=== PATIENT | female | born 1960 | race Caucasian/White ===

== ENCOUNTER 2017-02-26 19:32 | Outpatient (CLI) | payer OTHER ==
[2017-02-26 19:57] LABS: BASOPHILS # (AUTO) 0.1 10^3/uL (0.0-0.1); BASOPHILS % (AUTO) 0.5 %; EOSINOPHILS # (AUTO) 0.1 10^3/uL (0.0-0.7); EOSINOPHILS % (AUTO) 0.7 %; HCT - HEMATOCRIT 42.4 % (37.0-47.0); HGB - HEMOGLOBIN 14.5 g/dL (12.0-16.0); LYMPHOCYTES # (AUTO) 2.2 10^3/uL (1.5-3.5); LYMPHOCYTES % (AUTO) 19.1 %; MEAN CORPUSCULAR HEMOGLOBIN 31.3 pg (27.0-31.0); MEAN CORPUSCULAR HGB CONC 34.1 g/dL (32.0-36.0); MEAN CORPUSCULAR VOLUME 91.6 fL (81.0-99.0); MEAN PLATELET VOLUME 9.9 fL (7.9-10.8); MONOCYTES # (AUTO) 0.8 10^3/uL (0.0-1.0); NEUTROPHILS # (AUTO) 8.3 10^3/uL (1.5-6.6); NEUTROPHILS % (AUTO) 72.7 %; RED BLOOD COUNT 4.64 10^6/uL (4.20-5.40); RED CELL DISTRIBUTION WIDTH 13.3 % (12.0-15.0); UNCORRECTED WHITE BLOOD COUNT 11.5 x10^3/uL; WHITE BLOOD COUNT 11.5 x10^3/uL (4.8-10.8)
[2017-02-26 20:04] LABS: HEMOGLOBIN A1C 0.56 g/dL
[2017-02-26 20:08] LABS: ALBUMIN/GLOBULIN RATIO 1.3 (1.0-2.2); BILIRUBIN,TOTAL 0.9 mg/dL (0.2-1.0); BUN - BLOOD UREA NITROGEN 14 mg/dL (6-20); CALCIUM 9.3 mg/dL (8.5-10.3); CARBON DIOXIDE - CO2 25 mmol/L (21-32); CHLORIDE 105 mmol/L (101-111); CHOL/HDL RATIO 2.6 (<4.4); CHOLESTEROL 134 mg/dL; CREATININE 0.7 mg/dL (0.4-1.0); GFR - MDRD 87 (>89); GLUCOSE 118 mg/dL (70-100); HDL CHOLESTEROL 52 mg/dL; LDL/HDL RATIO 1.3 (<4.4); POTASSIUM 3.7 mmol/L (3.5-5.0); SODIUM 138 mmol/L (135-145); TOTAL PROTEIN 7.8 g/dL (6.7-8.2); TRIGLYCERIDES 64 mg/dL; VLDL CHOLESTEROL 13 mg/dL
== END 2017-02-26 19:33 | disposition home or self-care (01) ==
LOC: LAB 19:32
PROVIDERS: ATTEND Family Medicine
DX: N82.3 Fistula of vagina to large intestine (principal)
CPT/HCPCS: 36415; 80053; 80061; 83036; 84443; 85025

== ENCOUNTER 2017-03-28 21:53 | Outpatient (CLI) | payer OTHER ==
[2017-03-28 22:09] LABS: BASOPHILS # (AUTO) 0.1 10^3/uL (0.0-0.1); BASOPHILS % (AUTO) 0.6 %; EOSINOPHILS # (AUTO) 0.1 10^3/uL (0.0-0.7); EOSINOPHILS % (AUTO) 1.4 %; HGB - HEMOGLOBIN 13.1 g/dL (12.0-16.0); LYMPHOCYTES # (AUTO) 2.5 10^3/uL (1.5-3.5); LYMPHOCYTES % (AUTO) 26.2 %; MEAN CORPUSCULAR HEMOGLOBIN 30.9 pg (27.0-31.0); MEAN CORPUSCULAR HGB CONC 33.6 g/dL (32.0-36.0); MEAN PLATELET VOLUME 9.1 fL (7.9-10.8); MONOCYTES # (AUTO) 0.6 10^3/uL (0.0-1.0); MONOCYTES % (AUTO) 6.6 %; NEUTROPHILS # (AUTO) 6.3 10^3/uL (1.5-6.6); NEUTROPHILS % (AUTO) 65.2 %; RED BLOOD COUNT 4.24 10^6/uL (4.20-5.40); RED CELL DISTRIBUTION WIDTH 13.4 % (12.0-15.0); UNCORRECTED WHITE BLOOD COUNT 9.7 x10^3/uL; WHITE BLOOD COUNT 9.7 x10^3/uL (4.8-10.8)
[2017-03-28 22:19] LABS: H. PYLORI IGG ANTIBODY Negative (Negative); HPYLORI NEG QC Negative (Negative); HPYLORI POS QC POSITIVE (Positive)
== END 2017-03-28 21:54 | disposition home or self-care (01) ==
LOC: LAB 21:53
PROVIDERS: ATTEND Family Medicine
DX: D72.829 Elevated white blood cell count, unspecified (principal); K57.92 Diverticulitis of intestine, part unspecified, without perforation or abscess without bleeding; N94.6 Dysmenorrhea, unspecified
CPT/HCPCS: 36415; 83001; 83690; 85025; 87339

== ENCOUNTER 2017-04-25 17:41 | Outpatient (CLI) | payer OTHER ==
--- NOTE | 2017-04-26 10:00 | Ultrasound Report ---
PELVIC ULTRASOUND: 04/25/2017 CLINICAL INDICATION: Postmenopausal bleeding. TECHNIQUE: Transabdominal pelvic ultrasound performed for global evaluation. Transvaginal pelvic ul trasound performed for detailed evaluation. Real-time scanning performed and static images obtained. FINDINGS: The uterus is anteverted, measuring 13.1 x 8.2 x 5.7 cm. The endometrial echo complex sahra sures 17 mm. No focal myometrial lesion is appreciated. The ovaries are normal, with the right bea uring 2.6 x 2.0 x 1.5 cm, and the left measuring 2.5 x 1.7 x 1.2 cm. No free fluid is present. IMPRESSION: THICKENED ENDOMETRIUM FOR A POSTMENOPAUSAL PATIENT. CORRELATION WITH ENDOMETRIAL BIOPSY IS RECOMMENDED. JOB #: [id number] EXT JOB #:[id number]
== END 2017-04-25 17:42 | disposition home or self-care (01) ==
LOC: DI 17:41
PROVIDERS: ATTEND Obstetrics & Gynecology
DX: R93.8 Abnormal findings on diagnostic imaging of other specified body structures (principal)
CPT/HCPCS: 76830; 76856

== ENCOUNTER 2017-04-27 13:33 | Outpatient (CLI) | payer OTHER ==
[~2017-04-27 13:33] MED LIST: IOPAMIDOL-300 100 ML VIAL ONE; IOPAMIDOL-300 50 ML VIAL ONE
[2017-04-27] MEDS ORDERED: IOPAMIDOL-300 50 ML VIAL PO ONE (15:20)
[2017-04-27] MEDS ORDERED: IOPAMIDOL-300 100 ML VIAL IVP ONE (15:20)
--- NOTE | 2017-04-27 18:05 | CT Report ---
CT ABDOMEN AND PELVIS WITH CONTRAST: 04/27/2017 CLINICAL INDICATION: Diverticular disease, question colovaginal fistula. Axial CT images of the abdomen and pelvis were obtained with 100 mL Isovue-300 intravenously as well as oral contrast. In accordance with CT protocol optimization, one or more of the following dose reduction techniques w ere utilized for this exam: automated exposure control, adjustment of mA and/or KV based on patient size, or use of iterative reconstructive technique. No previous CT is available for comparison. Limited evaluation of the lung bases is unremarkable. ABDOMEN: The patient is status post cholecystectomy. The liver, spleen, pancreas, kidneys, and adre nal glands are unremarkable. No bowel dilatation, free gas, or free fluid is present. No abdominal adenopathy is seen. PELVIS: The appendix is seen in the right lower quadrant, and appears unremarkable. The uterus appe ars heterogeneous. A few sigmoid diverticula are present, without CT evidence of diverticulitis. No definite colovaginal fistula is identified, but oral contrast is not present in the distal-most sigm oid colon and rectum. No free fluid or pelvic adenopathy is appreciated. Osseous structures demonstrate degenerative changes. IMPRESSION: POSTOPERATIVE CHANGES OF CHOLECYSTECTOMY. DIVERTICULOSIS, WITHOUT CT EVIDENCE OF DIVERT ICULITIS. JOB #: [id number] EXT JOB #:[id number]
== END 2017-04-27 13:34 | disposition home or self-care (01) ==
LOC: DI 13:33
PROVIDERS: ATTEND Family Medicine
DX: K57.30 Diverticulosis of large intestine without perforation or abscess without bleeding (principal); Z90.49 Acquired absence of other specified parts of digestive tract
CPT/HCPCS: 74177; Q9967

== ENCOUNTER 2017-12-11 14:20 | Outpatient (CLI) | payer OTHER ==
--- NOTE | 2017-12-11 18:04 | HISTORY & PHYSICAL EXAMINATION ---
DATE OF SERVICE: 12/11/2017 Physician: Israel Beck MD HISTORY OF PRESENT ILLNESS: 1. Unremitting menorrhagia with anemia. 2. Failed medical therapy including OCPs and Motrin. 3. Pelvic pain, inclusive of severe dysmenorrhea. 4. Ultrasound evidence of possible adenomyosis. PLANNED PROCEDURE: Laparoscopic-assisted vaginal hysterectomy with bilateral salpingectomy; modified Mackay's procedure. HISTORY: Patient is a 56-year-old multiparous woman who has a longstanding history of menorrhagia, severe dysmenorrhea and pelvic pain. Currently, she almost bleeds continuously. Before that, she had extended menses that lasted more than 7 days with clots and documented anemia. In the distant past, she had used oral contraceptives with minimal effect. She is currently status post bilateral tubal ligation and does not want to suffer OCP side effects. She has tried numerous NSAIDs inclusive of Motrin, ibuprofen, Anaprox without relief of her dysmenorrhea. She has premenstrual dysmenorrhea that continues afterwards. This as well as the bleeding that occasionally soils through her pads makes working difficult. "I feel just ill and exhausted during my menstrual bleeding." The patient has no abnormal Pap smear history. Endometrial biopsy is negative for malignancy. PAST MEDICAL HISTORY: No chronic disease history; some history of depression and anxiety, but controlled. History of anal fissures and rectovaginal fistula. Reference Dr. Meryl Alas' report. Anoscopy discovered a rectovaginal fistula and there is at the current time it is healing over and intervention was not recommended by colorectal surgery. Last colonoscopy was in 2012, and there is no evidence of malignancy. Anoscopy was performed in [address] Alas at [facility]. PAST SURGICAL HISTORY: Cholecystectomy 2007, bilateral tubal ligation 1996. ALLERGIES: NO KNOWN DRUG ALLERGIES. MEDICATIONS: Fish oil and multivitamin. FAMILY HISTORY: Pancreatic cancer maternal relatives, asthma mother, skin cancer mother, diabetes brother at 33, daughter age 25. Depression in mother. CAD father, early at 48, hypertension mother. 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 Former smoker who smoked for 10 years and did quit smoking greater than 5 years ago. No drug, tobacco. No current tobacco use, no alcohol or drug use. REVIEW OF SYSTEMS: CONSTITUTIONAL: Fatigue, lethargy and loss of appetite with menstrual periods. HEENT: Occasional blurred vision, some hearing loss, vertigo and tinnitus. CARDIOVASCULAR: Occasional palpitations, but this has been longstanding. RESPIRATIONS: Negative. GASTROINTESTINAL: Abdominal pain, bouts of chronic constipation. GYNECOLOGIC: Reviewed in HPI. URINARY: No significant stress or urge incontinence. No UTI symptoms. MUSCULOSKELETAL: Back pain, particularly lumbar pain. DERMATOLOGIC: Negative. BREASTS: No self-breast exam findings. NEUROLOGIC: Occasionally poor balance. PSYCHOLOGIC: Referenced above. PHYSICAL EXAMINATION: GENERAL: Well groomed, pleasant, accompanied by her . VITAL SIGNS: Posted. HEENT: Supple neck. No thyromegaly normal dentition. LUNGS: Clear to auscultation. CARDIOVASCULAR: Regular. No murmur, no gallop. ABDOMEN: Soft. No organomegaly or gallbladder tenderness. No significant abdominal tenderness in her lower quadrants currently no CVA tenderness. UROGENITAL: Normal Bartholin's glands. No atrophy. Urethral meatus normal and no tenderness. Bladder no tenderness noted. VAGINA: Moist and pink. No evidence of prolapse. No abnormal discharge. Cervix, no ulcerations, lesions or cervicitis. UTERUS: Retroverted, 10-week size, tender. ADNEXA: Normal size ovaries, right and left. No tenderness noted. No mass. LYMPHATIC: No inguinal lymphadenopathy or tenderness. MUSCULOSKELETAL: Negative. SKIN: Negative. NEUROLOGIC: Negative. PSYCHOLOGIC: Completely normal demeanor and mood. ASSESSMENT: The patient has debilitating bouts heavy uterine bleeding and pain. Endometrial biopsy does not reveal malignant or premalignant changes. Pap smear normal. The patient's life is so disrupted, she desires a permanent solution. The patient has a history of levator plate spasm and anal fissures. This is stable and not a factor in her pain. PLAN: Laparoscopic-assisted vaginal hysterectomy with bilateral salpingectomy. Conservation of the ovaries unless pathology is found. Modified Mackay's culdoplasty and vaginal cuff support. Discussed various treatment options and the patient is certain that she desires hysterectomy. All risks, benefits and alternatives were reviewed. [facility] [place] reviewed in detail and all questions answered. Informed consent paperwork has been signed. TD: 12/11/2017 16:28 [facility]
[2017-12-11 19:00] LABS: BILIRUBIN,URINE NEGATIVE (NEGATIVE); GLUCOSE, URINE (UA) NEGATIVE (NEGATIVE); KETONES,URINE (UA) NEGATIVE (NEGATIVE); LEUKOCYTE ESTERASE, URINE NEGATIVE (NEGATIVE); NITRITE,URINE NEGATIVE (NEGATIVE); OCCULT BLOOD,URINE NEGATIVE (NEGATIVE); PROTEIN,URINE NEGATIVE (NEGATIVE); UROBILINOGEN,URINE 0.2 (NORMAL) E.U./dL (NORMAL)
[2017-12-11 19:02] LABS: CLARITY,URINE CLOUDY (CLEAR)
[2017-12-11 19:10] LABS: BASOPHILS % (AUTO) 0.6 %; EOSINOPHILS # (AUTO) 0.2 10^3/uL (0.0-0.7); EOSINOPHILS % (AUTO) 2.2 %; HGB - HEMOGLOBIN 13.7 g/dL (12.0-16.0); LYMPHOCYTES # (AUTO) 2.4 10^3/uL (1.5-3.5); LYMPHOCYTES % (AUTO) 30.2 %; MEAN CORPUSCULAR HEMOGLOBIN 30.6 pg (27.0-31.0); MEAN CORPUSCULAR HGB CONC 33.4 g/dL (32.0-36.0); MEAN CORPUSCULAR VOLUME 91.5 fL (81.0-99.0); MEAN PLATELET VOLUME 10.3 fL (7.9-10.8); MONOCYTES # (AUTO) 0.6 10^3/uL (0.0-1.0); NEUTROPHILS # (AUTO) 4.8 10^3/uL (1.5-6.6); PLT - PLATELET COUNT 221 10^3/uL (130-450); RED BLOOD COUNT 4.49 10^6/uL (4.20-5.40); WHITE BLOOD COUNT 8.1 x10^3/uL (4.8-10.8)
[2017-12-11 20:08] LABS: HCG,QUALITATIVE BLOOD NEGATIVE
== END 2017-12-11 14:21 | disposition home or self-care (01) ==
LOC: LAB.N 14:20
PROVIDERS: ATTEND Obstetrics & Gynecology
DX: Z01.812 Encounter for preprocedural laboratory examination (principal); N94.6 Dysmenorrhea, unspecified; N92.4 Excessive bleeding in the premenopausal period
CPT/HCPCS: 36415; 81003; 84703; 85025; 86850; 86900; 86901

== ENCOUNTER 2017-12-12 07:57 | Day surgery (SDC) | payer OTHER ==
[~2017-12-12 07:57] MED LIST changes: -IOPAMIDOL-300 100 ML VIAL ONE; -IOPAMIDOL-300 50 ML VIAL ONE; +ceFAZolin 2 GM/50 ML 2 GM/50 ML BAG IV ONE
[2017-12-12 08:05] VITALS: BP 111/61
[2017-12-12] MEDS ORDERED: LACTATED RINGERS 1,000 ML IV ONE ×2 (08:10→11:26)
[2017-12-12] MEDS ORDERED: SCOPOLAMINE PATCH TOP ONE (08:30)
[2017-12-12] MEDS ORDERED: BUPIVACAINE 0.25%-EPI 1:200000 PF 30 ML VIAL ONE (09:17)
[2017-12-12] MEDS ORDERED: BUPIVACAINE 0.25%-EPI 1:200000 PF 10 ML VIAL SUBQ ONE (09:40)
[2017-12-12] MEDS ORDERED: NEOSTIGMINE 1 MG/1 ML 10 ML MDV IVP ONE (10:15)
[2017-12-12] MEDS ORDERED: LIDOCAINE-MPF 2% 5 ML VIAL IM ONE (10:15)
[2017-12-12] MEDS ORDERED: DEXAMETHASONE 4 MG/ML VIAL IVP ONE (10:15)
[2017-12-12] MEDS ORDERED: KETOROLAC 30 MG/ML VIAL IVP ONE (10:15)
[2017-12-12] MEDS ORDERED: fentaNYL 250 MCG/5 ML VIAL IVP ONE (10:15)
[2017-12-12] MEDS ORDERED: PROPOFOL 200 MG/20 ML VIAL IVP ONE (10:15)
[2017-12-12] MEDS ORDERED: ROCURONIUM 50 MG/5 ML VIAL IVP ONE (10:15)
[2017-12-12] MEDS ORDERED: MIDAZOLAM 2 MG/2 ML VIAL IVP ONE (10:15)
[2017-12-12] MEDS ORDERED: ONDANSETRON 4 MG/2 ML VIAL IVP ONE (10:15)
[2017-12-12] MEDS ORDERED: GLYCOPYRROLATE 1 MG/5 ML VIAL IVP ONE (10:15)
--- NOTE | 2017-12-12 11:28 | OPERATIVE REPORT ---
Operative Report - General Pre-Op Diagnosis: Menorrhagia with anemia; pelvic pain; prior rectal vaginal fistula, levator Procedure Performed: Laparoscopic vaginal assisted hysterectomy; bilateral salpingectomy; modified Mackay's culdoplasty Post Op Diagnosis: Adenomyosis suspect; cystitis cystica, Await final pathology - Procedure Note Primary Surgeon: Jon Beck MD Secondary Surgeon: jon Daniel MD Anesthesia Technique: General ET tube Pathology: Uterus and tubes IV Fluids (mL): 1,200 Estimated Blood Loss (mL): 50 Urine Output (mL): 400 Drain/Tube Type: Other (Fried) Complications: None.
[2017-12-12] MEDS: HYDROmorphone 1 MG/ML CARPUJECT ONE ×2 (11:48→12:11)
[2017-12-12] MEDS ORDERED: ACETAMINOPHEN 1,000 MG/100 ML 100 ML IV ONE (11:58)
[2017-12-12] MEDS ORDERED: ONDANSETRON 4 MG/2 ML VIAL IVP PRN (12:40)
[2017-12-12] MEDS: IBUPROFEN 600 MG TABLET PO SCH ×2 (14:13→19:58)
[2017-12-12] MEDS: LACTATED RINGERS 1,000 ML IV SCH ×2 (14:15→21:23)
[2017-12-12] MEDS: oxyCOD/ACETAMIN 5 MG/325 MG TABLET PO PRN ×2 (16:01→21:23)
--- NOTE | 2017-12-12 17:40 | OPERATIVE REPORT ---
DATE OF SERVICE: 12/12/2017 Physician: Israel Beck MD PREOPERATIVE DIAGNOSIS: Menorrhagia with anemia; pelvic pain/severe dysmenorrhea; prior rectovaginal fistula; levator plate spasm. POSTOPERATIVE DIAGNOSIS: Adenomyosis suspect; cystitis cystica; await final pathology. PROCEDURE: Laparoscopic-assisted vaginal hysterectomy; bilateral salpingectomy ; modified Mackay's culdoplasty; cystoscopy. SURGEON: Israel Beck MD, FACOG SECOND SURGEON: Israel Daniel MD, FACOG ANESTHESIA: Sam Mancini, certified nurse graphite disk assembler. ANESTHESIA TYPE: General with ET tube. Marcaine 0.25% 20cc Local PATHOLOGY: Uterus and tubes sent. ESTIMATED BLOOD LOSS: 50 mL. DRAINS: Fried catheter with clear urine. COMPLICATIONS: None. FINDINGS: Exam under anesthesia finds no evident opening between the rectum and the vagina currently. The upper portions of the fornices are scarred down and twisted somewhat. Uterus is large and bulky, probably 11- to 12-week size. The uterus has a normal contour. There is 1 blotch of powder burn changes on the posterior aspect of the uterus. The ovaries looked normal. Tubes are status post tubal ligation. The rectum is adherent fairly high on the vaginal cuff, within 2 cm of the cervix. Cystoscopy reveals functional right and left ureters. There is some cystitis cystica in the trigone. There was glomerulization as well. TECHNIQUE: The awake patient was brought to the operating room and placed in the supine position on the OR table. She was uneventfully induced and intubated. She was moved to the low dorsal lithotomy position on mobile stirrups. She was prepped and draped in the customary sterile fashion. Timeout briefing was done per protocol. Exam under anesthesia was performed. A uterine manipulator was uneventfully placed as well as a keely. After injection of Marcaine, a small incision was placed under the umbilical skin fold. A 5 mm Visiport trocar was uneventfully placed into the abdominal cavity under direct visualization. Abdomen was insufflated with CO2 gas under 12 mm of pressure. Under direct visualization, 5 mm right and left operating ports were placed in the lower quadrants. The abdominal contents were assessed. See findings and photos. Beginning on the left side, the tube was tented superiorly into the midline. Using LigaSure, the mesosalpinx was desiccated and divided. Next, the utero-ovarian ligaments were desiccated and divided. Round ligaments were desiccated and divided. LigaSure was used to develop the broad ligaments and skeletonize the uterine vessels. After identifying the uterine vessels, they were doubly desiccated and divided with LigaSure. Bladder flap was developed with LigaSure and blunt dissection. This process was then repeated on the right- hand side. At this point, the procedure was converted to a vaginal phase. All CO2 gas was removed. The patient was then placed in the high dorsal lithotomy position. A weighted speculum was placed. A halo of small aliquots of Marcaine with epinephrine were injected around the cervical barrel. The cervical barrel was then circumscribed with Bovie pencil. The posterior compartment was sharply entered. The base of the uterosacral ligaments were clamped, transected and transfixed with 0 Vicryl. Next, the main body of the uterosacral ligaments were clamped, transected and transfixed with 0 Vicryl. Both of these pedicles were then tied together. We continued upward with clamping and transection maneuvers until the laparoscopic dissection was encountered. Initially, we tried to slide the uterus through the colpotomy wound, but it was too bulky. We bivalved the uterus with scissors and scalpel to allow the removal intact. The pelvic peritoneum was gathered in a pursestring with 0 Vicryl. Care was taken not to encroach on the rectum due to its high position. Next, the uterosacral ligament pedicles were tied together in the midline. Additional sutures through the uterosacral ligaments were placed and passed through the lateral corners of the vaginal cuff and tied tightly. The vaginal mucosa was closed with a running stitch of 0 chromic. At this time, we returned to the laparoscopic phase. Abdomen was insufflated with CO2 gas and all operative sites inspected and found to be hemostatically secure. At this point, the abdomen was desufflated and all trocars were removed. The skin ports were closed with subcuticular stitches of 4-0 Monocryl and dressed with Dermabond. Additional 0.25% Marcaine with epinephrine was injected for comfort. Cystoscopic Phase: To ensure integrity of the urinary collecting system, a video cystoscopy was performed. Using a 70-degree video cystoscope, the bladder was systematically inspected and found to be intact without any incursions. Both right and left ureters were functional. At this point, the Fried drain was replaced. DISPOSITION The patient was uneventfully aroused from general anesthesia and sent to the recovery in good condition. We will watch her during her recovery period and evaluate her for possible discharge later in the day. Unfortunately, the patient developed severe nausea with nonbilious nonbloody emesis and could not be discharged immediately. She was transferred to the floor for extended observation stay status. She is not anticipated to spend more than 24 hours in the hospital. DISCHARGE MEDICATIONS 1. Motrin 600 q.6h. 2. Percocet 5/325 q.4h. breakthrough pain. 3. Colace 250 b.i.d. Followup exam in the office will be in 2 weeks. The patient was given complete wound care and call back instructions. TD: 12/12/2017 12:02 LYNNETTE
[2017-12-12] MEDS: HYDROmorphone 0.5 MG/0.5 ML SYRINGE IVP PRN (19:05)
[2017-12-13] MEDS: HYDROmorphone 0.5 MG/0.5 ML SYRINGE IVP PRN ×2 (00:02→04:53)
[2017-12-13] MEDS: IBUPROFEN 600 MG TABLET PO SCH ×2 (01:17→06:49)
[2017-12-13] MEDS: oxyCOD/ACETAMIN 5 MG/325 MG TABLET PO PRN ×2 (01:18→06:49)
[2017-12-13] MEDS: LACTATED RINGERS 1,000 ML IV SCH (05:47)
== END 2017-12-13 11:00 | disposition home or self-care (01) ==
LOC: SDS 07:57 → MS2 12:11 → SDS 12-13 11:00
PROVIDERS: ATTEND Obstetrics & Gynecology
PROC: 0UT7FZZ Resection of Bilateral Fallopian Tubes, Via Natural or Artificial Opening With Percutaneous Endoscopic Assistance (ICD-10-PCS; 2017-12-12)
PROC: 0US Female Reproductive System, Reposition (ICD-10-PCS; 2017-12-12)
PROC: 0UT9FZZ Resection of Uterus, Via Natural or Artificial Opening With Percutaneous Endoscopic Assistance (ICD-10-PCS; principal; 2017-12-12 08:45)
DX: D25.1 Intramural leiomyoma of uterus (principal); N80.0 Endometriosis of uterus; N30.80 Other cystitis without hematuria; N88.8 Other specified noninflammatory disorders of cervix uteri; Z87.891 Personal history of nicotine dependence
CPT/HCPCS: 57268; 58554; A9270; J0131; J0690; J1170; J3010; J3490; J7120; 88307

== ENCOUNTER 2018-02-14 15:15 | Outpatient (CLI) | payer OTHER | END 2018-02-14 15:16 | disposition home or self-care (01) | LOC: LAB.R 15:15 | PROVIDERS: ATTEND Obstetrics & Gynecology | DX: N89.8 Other specified noninflammatory disorders of vagina (principal) | CPT/HCPCS: 87070; 87491; 87591 ==

== ENCOUNTER 2018-04-03 14:11 | Day surgery (SDC) | payer OTHER ==
[2018-04-03] MEDS ORDERED: SODIUM CHLORIDE 0.9% 1,000 ML IV ONE (15:06)
--- NOTE | 2018-04-03 15:09 | ED Physician Documentation ---
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 No: Fever, Vomiting, Hematemesis, Diarrhea, Melena, Hematochezia, Dysuria, Hematuria, Chest pain Similar symptoms before: Has not had sx before Recently seen: Not recently seen Review of Systems Constitutional: denies: Fever, Chills Ears: denies: Ear pain Nose: denies: Rhinorrhea / runny nose, Congestion Throat: denies: Sore throat Cardiac: denies: Chest pain / pressure Respiratory: denies: Cough : denies: Dysuria Skin: denies: Rash Musculoskeletal: denies: Neck pain, Back pain PD PAST MEDICAL HISTORY - Past Medical History Past Medical History: Yes GI: Hemorrhoids, Diverticulitis - Past Surgical History Past Surgical History: Yes General: Cholecystectomy, 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: Tubal ligation - Present Medications Home Medications: Ambulatory Orders Medication Instructions Recorded Confirmed Docusate Sodium 250Mg Capsule 250 mg PO DAILY #14 capsule 01/13/16 12/12/17 [Colace] Derby-3/Dha/Epa/Fish Oil [Fish Oil 1 each PO DAILY 12/11/17 12/12/17 1,000 mg Softgel] - Allergies Allergies/Adverse Reactions: Allergies Allergy/AdvReac Type Severity Reaction Status Date / Time No Known Drug Allergies Allergy Verified 04/03/18 14:49 - Social History Does the pt smoke?: No Smoking Status: Never smoker Does the pt drink ETOH?: No Does the pt have substance abuse?: No - Immunizations Immunizations are current?: Yes - POLST Patient has POLST: No PD ED PE NORMAL - Vitals Vital signs reviewed: Yes - General General: Alert and oriented X 3, No acute distress - HEENT HEENT: Moist mucous membranes - Neck Neck: Supple, no meningeal sign - Cardiac Cardiac: RRR, Strong equal pulses - Respiratory Respiratory: No respiratory distress, Clear bilaterally - Abdomen Abdomen: Soft, Other (TTP RLQ at McBurney's point, + rebound and guarding.) - Derm Derm: Warm and dry - Extremities Extremities: No calf tenderness / cord - Neuro Neuro: Alert and oriented X 3 - Psych Psych: Normal mood, Normal affect Results - Vitals Vitals: Vital Signs - 24 hr 04/03/18 04/03/18 14:47 16:39 Temperature 36.5 C 36.8 C Heart Rate 95 72 Respiratory 16 16 Rate Blood Pressure 98/59 L 105/63 O2 Saturation 97 100 Oxygen O2 Source Room air - Labs Labs: Laboratory Tests 04/03/18 04/03/18 04/03/18 15:08 15:08 15:46 WBC 7.5 RBC 4.57 Hgb 14.2 Hct 42.0 MCV 92.0 MCH 31.1 H MCHC 33.8 RDW 13.4 Plt Count 236 MPV 9.3 Neut # (Auto) 5.2 Lymph # (Auto) 1.7 Mclean # (Auto) 0.5 Eos # (Auto) 0.1 Baso # (Auto) 0.0 Absolute Nucleated RBC 0.00 Nucleated RBC % 0.0 Sodium 138 Potassium 3.9 Chloride 104 Carbon Dioxide 26 Anion Gap 8.0 BUN 12 Creatinine 0.7 Estimated GFR (MDRD) 87 L Glucose 104 H Calcium 9.6 Total Bilirubin 0.7 AST 19 ALT 16 Alkaline Phosphatase 72 Total Protein 7.6 Albumin 4.2 Globulin 3.4 Albumin/Globulin Ratio 1.2 Lipase 32 Urine Color YELLOW Urine Clarity CLEAR Urine pH 7.0 Ur Specific [place] 1.010 Urine Protein NEGATIVE Urine Glucose (UA) NEGATIVE Urine Ketones NEGATIVE Urine Occult Blood NEGATIVE Urine Nitrite NEGATIVE Urine Bilirubin NEGATIVE Urine Urobilinogen 0.2 (NORMAL) Ur Leukocyte Esterase NEGATIVE Ur Microscopic Review NOT INDICATED Urine Culture Comments NOT INDICATED - Rads (name of study) abd/pelvis CT Radiology: Prelim report reviewed, EMP read contemporaneously, See rad report (If you continue to have bleeding, you should follow-up with your doctor in 3 days for a repeat hCG) PD MEDICAL DECISION MAKING - ED course Complexity details: reviewed results, re-evaluated patient, considered differential, d/w patient, d/w financial planning consultant ED course: Patient is a 57-year-old female who presents to the emergency department the right lower quadrant abdominal pain today. Appears to have early uncomplicated appendicitis on CT scan and this is consistent with her clinical examination. Given Zosyn IV. Discussed the case with Dr. Sykes, general surgery who will come and evaluate the patient. Dr. Sykes evaluated the patient will take her to the operating room. This document was made in part using voice recognition software. While efforts are made to proofread this document, sound alike and grammatical errors may occur. - Sepsis Event Vital Signs: Vital Signs - 24 hr 04/03/18 04/03/18 14:47 16:39 Temperature 36.5 C 36.8 C Heart Rate 95 72 Respiratory 16 16 Rate Blood Pressure 98/59 L 105/63 O2 Saturation 97 100 Oxygen O2 Source Room air Departure - Departure Disposition: ED Transfer to [facility] Clinical Impression: Acute appendicitis Qualifiers: Acute appendicitis type: with localized peritonitis Qualified Code(s): K35.3 - Acute appendicitis with localized peritonitis Condition: Stable Discharge Date/Time: 04/03/18 17:51
[2018-04-03 15:14] LABS: BASOPHILS % (AUTO) 0.6 %; EOSINOPHILS # (AUTO) 0.1 10^3/uL (0.0-0.7); EOSINOPHILS % (AUTO) 1.5 %; HGB - HEMOGLOBIN 14.2 g/dL (12.0-16.0); LYMPHOCYTES # (AUTO) 1.7 10^3/uL (1.5-3.5); LYMPHOCYTES % (AUTO) 22.5 %; MEAN CORPUSCULAR HEMOGLOBIN 31.1 pg (27.0-31.0); MEAN CORPUSCULAR HGB CONC 33.8 g/dL (32.0-36.0); MEAN PLATELET VOLUME 9.3 fL (7.9-10.8); MONOCYTES # (AUTO) 0.5 10^3/uL (0.0-1.0); MONOCYTES % (AUTO) 6.4 %; NEUTROPHILS # (AUTO) 5.2 10^3/uL (1.5-6.6); PLT - PLATELET COUNT 236 10^3/uL (130-450); RED BLOOD COUNT 4.57 10^6/uL (4.20-5.40); RED CELL DISTRIBUTION WIDTH 13.4 % (12.0-15.0); WHITE BLOOD COUNT 7.5 x10^3/uL (4.8-10.8)
[2018-04-03 15:26] LABS: ALBUMIN 4.2 g/dL (3.2-5.5); ALBUMIN/GLOBULIN RATIO 1.2 (1.0-2.2); BILIRUBIN,TOTAL 0.7 mg/dL (0.2-1.0); CALCIUM 9.6 mg/dL (8.5-10.3); CREATININE 0.7 mg/dL (0.4-1.0); TOTAL PROTEIN 7.6 g/dL (6.7-8.2)
[2018-04-03] MEDS ORDERED: IOPAMIDOL-300 100 ML VIAL ONE (15:41)
[2018-04-03] MEDS ORDERED: IOPAMIDOL-300 100 ML VIAL IVP ONE (16:00)
[2018-04-03 16:01] LABS: BILIRUBIN,URINE NEGATIVE (NEGATIVE); GLUCOSE, URINE (UA) NEGATIVE (NEGATIVE); KETONES,URINE (UA) NEGATIVE (NEGATIVE); LEUKOCYTE ESTERASE, URINE NEGATIVE (NEGATIVE); NITRITE,URINE NEGATIVE (NEGATIVE); OCCULT BLOOD,URINE NEGATIVE (NEGATIVE); PROTEIN,URINE NEGATIVE (NEGATIVE); UROBILINOGEN,URINE 0.2 (NORMAL) E.U./dL (NORMAL)
[2018-04-03 16:03] LABS: CLARITY,URINE CLEAR (CLEAR)
--- NOTE | 2018-04-03 16:19 | CT Report ---
Reason: RLQ abd pain Procedure Date: 04/03/2018 Accession Number: [id number] / [id number] Procedure: CT - Abdomen/Pelvis W/ CPT Code: FULL RESULT: EXAM: CT ABDOMEN AND PELVIS EXAM DATE: 04/03/2018 03:53 PM. CLINICAL HISTORY: Right lower quadrant abdominal pain. COMPARISONS: ABDOMEN/PELVIS W/ 04/27/2017 2:59 PM. TECHNIQUE: Routine helical CT imaging was performed through the abdomen and pelvis. IV contrast: CE. Enteric contrast: No. Reconstructions: Coronal and sagittal. In accordance with CT protocol optimization, one or more of the following dose reduction techniques were utilized for this exam: automated exposure control, adjustment of mA and/or KV based on patient size, or use of iterative reconstructive technique. FINDINGS: Lung Bases: Unremarkable. Liver: Normal. No masses. Gallbladder/Bile Ducts: Status post cholecystectomy. Spleen: Normal. Pancreas: Normal. Adrenal Glands: Normal. Kidneys: Normal. No masses or hydronephrosis. Peritoneal Cavity/Bowel: There is subtle stranding in the cecal and periappendiceal distribution with mild associated mesenteric edema. The appendix appears hazy, measures up to 8 mm in caliber, and demonstrates mucosal hyperenhancement. There is no associated abscess or free air. Pelvic Organs: Normal. The bladder and visualized pelvic organs are within normal limits. Vasculature: No aneurysms or other significant abnormality. Bones: No significant abnormality. Other: None. IMPRESSION: Early uncomplicated appendicitis. A less specific inflammatory process, enteritis, in the right lower quadrant involving the appendix as a bystander effect can appear similar but is felt to be less likely. CRITICAL RESULT: The findings were discussed with Dr. Bustos on 04/03/2018 at 4:18 PM. [facility]
[2018-04-03] MEDS ORDERED: PIPERACILLIN/TAZOBACTAM 3.375 GM in SODIUM CHLORIDE 0.9% MINIBAG 100 ML IV STA (16:23)
--- NOTE | 2018-04-03 17:26 | CONSULTATION NOTE ---
Referring Provider Name of Referring Provider:: Dr. Vipul Bustos Consult Date: 04/03/18 Chief Complaint - Chief Complaint Chief Complaint: RLQ pain History of Present Illness - Admitted From Admitted From:: Outpatient not admitted - History Obtained From Records Reviewed: Yes History obtained from: Patient and chart Exam Limitations: None - History of Present Illness HPI Comment/Other: Dr. Vipul Hawkins asked that I evaluate this very pleasant 57-year-old female for the presence of early acute appendicitis. The patient's symptoms started around noon today. She worked last night here at [facility]. 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 The patient has had some nausea but no vomiting. Additionally, the patient had a hard bowel movement before coming to the emergen cy room. This did not resolve her symptoms. She points to Humberto's point when I ask for the area that hurts the most and states that the pain radiates down into her pelvis. 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 - POLST Patient has POLST: No Meds/Allgy - Home Medications Home Medications: Ambulatory Orders Medication Instructions Recorded Confirmed Docusate Sodium 250Mg Capsule 250 mg PO DAILY #14 capsule 01/13/16 12/12/17 [Colace] [place]-3/Dha/Epa/Fish Oil [Fish Oil 1 each PO DAILY 12/11/17 12/12/17 1,000 mg Softgel] - Allergies Allergies/Adverse Reactions: Allergies Allergy/AdvReac Type Severity Reaction Status Date / Time No Known Drug Allergies Allergy Verified 04/03/18 14:49 Review of Systems - Cardiovascular Cariovascular: denies: Chest pain - Respiratory Respiratory: denies: Cough, Sputum production, Wheezing, Hemoptysis - Gastrointestinal Gastrointestinal: reports: Abdominal pain, Constipation - Genitourinary Genitourinary: denies: Dysuria - Musculoskeletal Musculoskeletal: denies: Muscle pain, Back pain, Muscle aches - Integumentary Integumentary: denies: Rash - Neurological Neurological: denies: General weakness, Focal weakness - Endocrine Endocrine: reports: Other (Being treated for interstitial cystitis) Exam - Vital Signs Reviewed Vital Signs: Yes Vital Signs: Vital Signs x48h Temp Pulse Resp BP Pulse Ox 04/03/18 16:39 36.8 C 72 16 105/63 100 04/03/18 14:47 36.5 C 95 16 98/59 L 97 - Physical Exam General Appearance: positive: No acute distress Eyes Bilateral: positive: No lid inflammation, Conjunctivae nml, No scleral icterus ENT: positive: Dry mucous membranes Neck: positive: Trachea midline Respiratory: positive: Chest non-tender, No respiratory distress, Breath sounds nml Cardiovascular: positive: Regular rate & rhythm, No murmur, No gallop Abdomen: positive: No organomegaly, Nml bowel sounds, Tenderness (in RLQ at McBu rney's point.) Skin: positive: Color nml Extremities: positive: Nml appearance Neurologic/Psychiatric: positive: Oriented x3 Conclusion/Plan - Diagnosis Diagnosis: Early acute appendicitis - Plan Plan: The patient's history and radiographic findings are very consistent with acute appendicitis whereas the lab results are not. She has no left shift and no elevated white blood cell count. I discussed this with the patient and it was our decision that would be safer to take out her appendix rather than waiting to see whether or not she would develop a infectious process. Laparoscopic appendectomy, possible open appendectomy. The indications, procedure, alternatives including no surgery, possible risks including infection (deep or superficial), bleeding requiring transfusion (with all of its risks), and were fully explained to the patient and all questions answered. I also explained the pathophysiology. I explained that following the surgery I did not want her lifting anything over 15 pounds for 6 weeks to allow for optimal healing and to decrease the likelihood that a hernia would occur. All q uestions were fully answered. Verbal and written consent was obtained. The patient, in preparation for surgery has been nothing by mouth, and has received 3.375 g of Zosyn. I asked her to let me know if there is any way we can make her stay at [facility] more comfortable and she stated that she would let me know. The plan is to do this operation as an outpatient procedure and to discharge her home following the procedure. 45 minutes of [id number] time spent with the patient, over 80% in discussion and coordination of her care as well as completion of the requisite paperwork - Lab Results Lab results reviewed: Yes Fish Bones: 04/03/18 15:08 04/03/18 15:08 - Diagnostic Imaging Results Diagnostic Imaging Results: positive: Final report reviewed, Read independently
--- NOTE | 2018-04-03 17:34 | ANESTHESIA ---
Pre-Anesthesia VS, & Labs - Diagnosis Appendicitis - Procedure Lap appendectomy Vital Signs: Temp Pulse Resp BP Pulse Ox 36.8 C 72 16 105/63 100 04/03/18 16:39 04/03/18 16:39 04/03/18 16:39 04/03/18 16:39 04/03/18 16:39 Height 5 ft 5 in Weight (kg) 71.214 kg Body Mass Index 26.1 - Is Patient ?: No - Lab Results Current Lab Results: Laboratory Tests 04/03/18 15:08: Sodium 138, Potassium 3.9, Chloride 104, Carbon Dioxide 26, Anion Gap 8.0, BUN 12, Creatinine 0.7, Estimated GFR (MDRD) 87 L, Glucose 104 H, Calcium 9.6, Total Bilirubin 0.7, AST 19, ALT 16, Alkaline Phosphatase 72, Total Protein 7.6, Albumin 4.2, Globulin 3.4, Albumin/Globulin Ratio 1.2, Lipase 32 04/03/18 15:08: WBC 7.5, RBC 4.57, Hgb 14.2, Hct 42.0, MCV 92.0, MCH 31.1 H, MCHC 33.8, RDW 13.4, Plt Count 236, MPV 9.3, Neut # (Auto) 5.2, Lymph # (Auto) 1.7, Craig # (Auto) 0.5, Eos # (Auto) 0.1, Baso # (Auto) 0.0, Absolute Nucleated RBC 0.00, Nucleated RBC % 0.0 Lab results reviewed: Yes Fish Bones: 04/03/18 15:08 04/03/18 15:08 Home Medications and Allergies Home Medications: Ambulatory Orders Medication Instructions Recorded Confirmed Docusate Sodium 250Mg Capsule 250 mg PO DAILY #14 capsule 01/13/16 12/12/17 [Colace] [place]-3/Dha/Epa/Fish Oil [Fish Oil 1 each PO DAILY 12/11/17 12/12/17 1,000 mg Softgel] Active Medications Sodium Chloride (Normal Saline 0.9%) 1,000 mls @ 150 mls/hr IV .[id number] ONE Stop: 04/03/18 21:45 Last Admin: 04/03/18 16:21 Dose: 150 mls/hr [place]-3/Dha/Epa/Fish Oil [Fish Oil 1,000 mg Softgel] 1 each PO DAILY 12/11/17 Allergies/Adverse Reactions: Allergies Allergy/AdvReac Type Severity Reaction Status Date / Time No Known Drug Allergies Allergy Verified 04/03/18 14:49 Anes History & Medical History - Anesthetic History Anesthesia Complications: reports: No previous complications Family history of Anesthesia Complications: Denies Family history of Malignant Hyperthermia: Denies - Medical History Gastrointestinal: reports: Hemorrhoids, Diverticulitis Smoking Status: Never smoker Other Past Medical History: interstitual cystitis - Surgical History General: Cholecystectomy, Colonoscopy Gynecologic: Tubal ligation Exam General: Alert, Oriented x3, Cooperative, No acute distress Mouth Openin Fingerbreadth Neck Mobility: Normal Mallampati classification: I Thyromental Distance: 4-6 cm Respiratory: Lungs clear Cardiovascular: Regular rate, Normal S1, Normal S2, No murmurs Mental/Cognitive Status: Alert/Oriented X3, Normal for patient Cognitive Status: Within normal limits Plan Anesthesia Type: General Consent for Procedure(s) Verified and Reviewed: Yes Code Status: Attempt Resuscitation ASA classification: 2-Mild systemic disease Is this case an emergency?: Yes
[2018-04-03] MEDS ORDERED: SCOPOLAMINE PATCH TOP ONE (17:35)
[2018-04-03] MEDS ORDERED: BUPIVACAINE 0.5% PF 30 ML VIAL ONE (17:46)
[2018-04-03] MEDS ORDERED: LACTATED RINGERS 1,000 ML IV ONE ×2 (17:51→18:14)
[2018-04-03] MEDS ORDERED: BUPIVACAINE 0.5% PF 30 ML VIAL INFIL ONE (18:14)
[2018-04-03] MEDS ORDERED: MIDAZOLAM 2 MG/2 ML VIAL IVP ONE (18:15)
[2018-04-03] MEDS ORDERED: LIDOCAINE-MPF 2% 5 ML VIAL IM ONE (18:15)
[2018-04-03] MEDS ORDERED: NEOSTIGMINE 1 MG/1 ML 10 ML MDV IVP ONE (18:15)
[2018-04-03] MEDS ORDERED: ROCURONIUM 50 MG/5 ML VIAL IVP ONE (18:15)
[2018-04-03] MEDS ORDERED: GLYCOPYRROLATE 1 MG/5 ML VIAL IVP ONE (18:15)
[2018-04-03] MEDS ORDERED: fentaNYL 100 MCG/2 ML VIAL IVP ONE (18:15)
[2018-04-03] MEDS ORDERED: KETOROLAC 30 MG/ML VIAL IVP ONE (18:15)
[2018-04-03] MEDS ORDERED: ONDANSETRON 4 MG/2 ML VIAL IVP ONE (18:15)
[2018-04-03] MEDS ORDERED: DEXAMETHASONE 4 MG/ML VIAL IVP ONE (18:15)
[2018-04-03] MEDS ORDERED: ACETAMINOPHEN 1,000 MG/100 ML 100 ML IV ONE (18:15)
[2018-04-03] MEDS ORDERED: PROPOFOL 200 MG/20 ML VIAL IVP ONE (18:15)
--- NOTE | 2018-04-03 19:00 | OPERATIVE REPORT ---
Operative Report - General Procedure Date: 04/03/18 Planned Procedure: Laparoscopic appendectomy Pre-Op Diagnosis: Acute appendicitis Procedure Performed: Biopsy of abdominal wall mass, laparoscopic appendectomy Post Op Diagnosis: Normal appendix, inflammatory mass abdominal wall - Procedure Note Primary Surgeon: Tim Sykes MD Anesthesia Provider: Sawyer Barton CRNA Anesthesia Technique: General ET tube, Local (30 mL 1/2% marcaine) IV Fluids (mL): 900 Estimated Blood Loss (mL): 5 Complications: None. - Other Other Information/Narrative: OPERATIVE DESCRIPTION/REPORT: After verbal and written informed consent was obtained detailing the risks of infection, bleeding requiring transfusion with its risks, and , and after I met with the patient confirming the surgery and the site of the surgery, the patient was brought to the operative suite and placed supine on the operating table. Great care was taken to avoid pressure points to prevent pressure necrosis or nerve injury. Monitoring devices were applied along with TEDs and pneumatic compressive stockings (to prevent DVT). The patient received preoperative antibiotics for surgical prophylaxis. Sawyer Barton CRNA sedated and anesthetized the patient for the entire procedure. The patient was prepped and draped in the usual sterile manner. With the patient draped my initials were clearly visible. A "time in" then confirmed that the patient was identified with 3 identifiers (name, date and medical record number), the history and physical was in the chart, the signed consent confirming the procedure was in the chart, the patient was in the correct position, the aforementioned prophylactic measures were in place or given, we had the correct personnel and equipment to complete the procedure and that anesthesia, surgery and nursing were given an opportunity to express any concerns. With the agreement of everyone in the room, we proceeded with the operation. A 2 cm incision umbilical incition was made tracing the previous incision and dissection down to the fascia was completed in a blunt and sharp manner. The fascia was then cleared of subcutaneous tissue using a tonsil clamp and a small incision was made in the fascia gaining entry into the abdomen without incident. A 12 mm blunt tipped balloon tipped Mckayla port was placed into the abdomen and the balloon inflated to keep it in place. The pneumoperitoneum was then established using carbon dioxide insufflation to a steady state pressure of 15 mmHg. Two additional 5 mm ports were placed in the midline above and below the umbilicus. The patient was then rotated slightly to their left and slightly head down (Trendelenberg). There was a mass on the abdominal wall that was photographed which appeared to be similar to the ovary that was just inferior to it. This was separate from the ovary. This was biopsied using a laparoscopic grasper. Multiple grasps of this lesion were taken and sent for pathologic evaluation. The appendix was then clearly identified and noted to appear normal. The end of the appendix was grasped with a Prestige grasper and lifted anteriorly thus revealing the appendiceal mesentery. The mesentery was taken using sequential application of the Ligasure until the base of the appendix was visualized without any adherent tissue. The base of the appendix was then stapled and transected using a laparoscopic vascular stapler. Visualization of the staple line revealed absolutely no bleeding or leak of bowel contents. Photographs were taken. The appendix was then place into an endopouch for the remainder of the case. The patient was then rotated to lie flat. The fascia and skin were then injected with the 30 cc of % marcaine for pain control. The insufflation was released and the ports removed. With the removal of the umbilical port the Endopouch containing the appendix was also removed. The fascial defect was then approximated using 0-Vicryl suture in a simple interrupted manner taking care to bury the knots. The skin incisions were approximated with 4-0 Monocryl in a subcuticular fashion. The surgical prep was removed, the skin was prepped with benzoin and steristrips were applied. A dressing was applied. At this point a time out was performed that confirmed that all the counts were correct, the procedure that was performed, the blood loss, the urine output, the IV fluids administered, and the patients condition. Having tolerated the procedure well, the patient was subsequently extubated and taken to recovery room in good and stable condition. Cloud Content disclaimer: This document was created in part using voice recognition technology. Because of the inherent limitations of the system ([employer]s [employer] Dictate user manual states that the licensee understands that speech recognition is a statistical process and that recognition errors are inherent in the process), occasional same sounding word substitutions and grammatical errors do occur and persist despite proofreading. Please read this document for context.
[2018-04-03] MEDS ORDERED: ONDANSETRON 4 MG/2 ML VIAL IVP PRN (19:01)
[2018-04-03] MEDS: HYDROmorphone 0.5 MG/0.5 ML SYRINGE IVP PRN ×2 (19:23→20:03)
[2018-04-03] MEDS ORDERED: HYDROmorphone 0.5 MG/0.5 ML SYRINGE ONE (19:23)
[2018-04-03] MEDS ORDERED: SODIUM CHLORIDE FLUSH 0.9% 10 ML SYRINGE ONE ×2 (20:01→23:56)
[2018-04-03] MEDS: HYDROcod/ACETAM 5/325 MG TABLET PO PRN (23:38)
[2018-04-04] MEDS: HYDROcod/ACETAM 5/325 MG TABLET PO PRN ×2 (03:21→07:51)
[2018-04-04 08:03] VITALS: BP 107/51
== END 2018-04-04 10:18 | disposition home or self-care (01) ==
LOC: ED 14:11 → SDS 17:03 → MS2 19:02 → SDS 04-04 10:18
PROVIDERS: ATTEND Surgery
PROC: 0WBF4ZX Excision of Abdominal Wall, Percutaneous Endoscopic Approach, Diagnostic (ICD-10-PCS; 2018-04-03)
PROC: 0DTJ4ZZ Resection of Appendix, Percutaneous Endoscopic Approach (ICD-10-PCS; principal; 2018-04-03 18:00)
DX: K35.80 Unspecified acute appendicitis (principal); R19.09 Other intra-abdominal and pelvic swelling, mass and lump
CPT/HCPCS: 36415; 44970; 49321; 74177; 80053; 81003; 83690; 85025; 96365; 99283; 99284; A9270; J0131; J1170; J3490; J7120; Q9967; 81001; 87086

== ENCOUNTER 2018-04-12 19:23 | Outpatient (CLI) | payer OTHER | END 2018-04-12 19:24 | disposition critical access hospital (66) | LOC: EMS 19:23 | PROVIDERS: ATTEND Surgery | DX: R10.9 Unspecified abdominal pain (principal); R11.0 Nausea | CPT/HCPCS: A0425; A0427 ==

== ENCOUNTER 2018-04-12 19:36 | Emergency (ER) | payer OTHER ==
[2018-04-12] MEDS ORDERED: HYDROmorphone 1 MG/ML CARPUJECT IVP STA ×2 (19:50→21:29)
[2018-04-12] MEDS ORDERED: SODIUM CHLORIDE 0.9% 1,000 ML IV ONE (19:50)
--- NOTE | 2018-04-12 20:36 | ED Physician Documentation ---
PD HPI ABD PAIN - Stated complaint Stated Complaint: ABD PAIN - Chief complaint Chief Complaint: Abd Pain - History obtained from History obtained from: Patient, Family, EMS - History of Present Illness Timing - onset: Today Timing - duration: Hours (3) Timing - details: Abrupt onset Pain level max: 10 Pain level now: 10 Quality: Aching, Pain Location: Epigastric Radiation: Other (all over) Improved by: Laying still Worsened by: Moving, Palpation Associated symptoms: Nausea. No: Fever, Vomiting, Hematemesis, Diarrhea, Constipation, Melena, Hematochezia, Dysuria Recently seen: Surgery (s/p lap appy 9 days ago) Review of Systems Ten Systems: 10 systems reviewed and negative Constitutional: denies: Fever, Chills Ears: denies: Ear pain Nose: denies: Rhinorrhea / runny nose, Congestion Throat: denies: Sore throat Cardiac: denies: Chest pain / pressure Respiratory: denies: Cough, Wheezing GI: denies: Vomiting, Diarrhea, Hematemesis, Bloody / black stool Skin: denies: Rash Musculoskeletal: denies: Neck pain, Back pain Neurologic: denies: Focal weakness, Numbness, Headache PD PAST MEDICAL HISTORY - Past Medical History Past Medical History: Yes GI: Hemorrhoids, Diverticulitis Psych: Anxiety - Past Surgical History Past Surgical History: Yes General: Cholecystectomy, Appendectomy, 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 - Present Medications Home Medications: Ambulatory Orders Medication Instructions Recorded Confirmed Docusate Sodium 250Mg Capsule 250 mg PO DAILY #14 capsule 01/13/16 04/12/18 [Colace] [place]-3/Dha/Epa/Fish Oil [Fish Oil 1 each PO DAILY 12/11/17 04/12/18 1,000 mg Softgel] Amitriptyline HCl 10 mg PO TID 04/12/18 04/12/18 Famotidine [Pepcid] 20 mg PO BID #60 tablet 04/12/18 Pentosan Polysulfate Sodium 100 mg PO TID 04/12/18 04/12/18 [[place]miron] Sucralfate [Carafate] 1 gm PO ACHS #60 tablet 04/12/18 - Allergies Allergies/Adverse Reactions: Allergies Allergy/AdvReac Type Severity Reaction Status Date / Time No Known Drug Allergies Allergy Verified 04/12/18 19:41 - Social History Does the pt smoke?: No Smoking Status: Never smoker Does the pt drink ETOH?: No Does the pt have substance abuse?: No - Immunizations Immunizations are current?: Yes - POLST Patient has POLST: No PD ED PE NORMAL - Vitals Vital signs reviewed: Yes - General General: Alert and oriented X 3, Other (appears in significant pain) - HEENT HEENT: Moist mucous membranes - Neck Neck: Supple, no meningeal sign - Cardiac Cardiac: RRR, Strong equal pulses - Respiratory Respiratory: No respiratory distress, Clear bilaterally - Abdomen Abdomen: Soft, Other (diffusely TTP with guarding. incisions are CDI) - Back Back: No spinal TTP - Derm Derm: Warm and dry - Extremities Extremities: No edema, No calf tenderness / cord - Neuro Neuro: Alert and oriented X 3 Results - Vitals Vitals: Vital Signs - 24 hr 04/12/18 04/12/18 19:37 20:15 Temperature 36.9 C Heart Rate 110 H 83 Respiratory 22 18 Rate Blood Pressure 131/87 H 125/61 O2 Saturation 100 100 Oxygen O2 Source Room air - Rads (name of study) CT abd/pelvis Radiology: Prelim report reviewed, EMP read contemporaneously, See rad report (no acute abnormality.) PD MEDICAL DECISION MAKING - ED course Complexity details: reviewed old records, reviewed results, re-evaluated patient, considered differential, d/w patient, d/w family, d/w python consultant ED course: Patient is a 57-year-old female who presents to the emergency department with abdominal pain, mainly epigastric tonight. Pain controlled with Dilaudid. No acute findings on CT scan or laboratory testing. Given a GI cocktail and symptoms resolved. Will place on Carafate and Pepcid for home. Has Vicodin for pain at home. She is well-appearing, nontoxic. Afebrile. Will have her follow-up with her doctor for further care. Discussed the case with Dr. Sykes, general surgery who agrees with the plan and will follow up with her in the office. Patient counseled regarding signs and symptoms for which I believe and urgent re-evaluation would be necessary. Patient with good understanding of and agreement to plan and is comfortable going home at this time This document was made in part using voice recognition software. While efforts are made to proofread this document, sound alike and grammatical errors may occur. - Sepsis Event Vital Signs: Vital Signs - 24 hr 04/12/18 04/12/18 19:37 20:15 Temperature 36.9 C Heart Rate 110 H 83 Respiratory 22 18 Rate Blood Pressure 131/87 H 125/61 O2 Saturation 100 100 Oxygen O2 Source Room air Departure - Departure Disposition: 01 Home, Self Care Clinical Impression: Gastritis Qualifiers: Gastritis type: unspecified gastritis Chronicity: acute Gastritis bleeding: without bleeding Qualified Code(s): K29.00 - Acute gastritis without bleeding Abdominal pain Qualifiers: Abdominal location: epigastric Qualified Code(s): R10.13 - Epigastric pain Condition: Good Instructions: ED Gastritis, ED Abdominal Pain Unkn Cause Follow-Up: Tim Sykes MD [Provider Admit Priv/Credential] - Within 1 week Pablo Bolanos MD [Primary Care Provider] - Prescriptions: Famotidine [Pepcid] 20 mg PO BID #60 tablet Sucralfate [Carafate] 1 gm PO ACHS #60 tablet Comments: Eat a bland diet. You can use the Vicodin you have at home as needed for pain. Return if you worsen. Follow-up with your doctor and Dr. Sykes for further care
[2018-04-12 20:38] LABS: BILIRUBIN,URINE NEGATIVE (NEGATIVE); GLUCOSE, URINE (UA) NEGATIVE (NEGATIVE); KETONES,URINE (UA) NEGATIVE (NEGATIVE); LEUKOCYTE ESTERASE, URINE TRACE (NEGATIVE); NITRITE,URINE NEGATIVE (NEGATIVE); OCCULT BLOOD,URINE NEGATIVE (NEGATIVE); PROTEIN,URINE NEGATIVE (NEGATIVE); UROBILINOGEN,URINE 0.2 (NORMAL) E.U./dL (NORMAL)
[2018-04-12 20:38] LABS: BASOPHILS # (AUTO) 0.1 10^3/uL (0.0-0.1); BASOPHILS % (AUTO) 0.5 %; EOSINOPHILS % (AUTO) 0.1 %; LYMPHOCYTES # (AUTO) 1.3 10^3/uL (1.5-3.5); LYMPHOCYTES % (AUTO) 12.5 %; MEAN CORPUSCULAR HEMOGLOBIN 31.5 pg (27.0-31.0); MEAN CORPUSCULAR HGB CONC 34.5 g/dL (32.0-36.0); MEAN CORPUSCULAR VOLUME 91.5 fL (81.0-99.0); MEAN PLATELET VOLUME 9.3 fL (7.9-10.8); MONOCYTES # (AUTO) 0.5 10^3/uL (0.0-1.0); MONOCYTES % (AUTO) 5.3 %; NEUTROPHILS # (AUTO) 8.5 10^3/uL (1.5-6.6); NEUTROPHILS % (AUTO) 81.6 %; PLT - PLATELET COUNT 250 10^3/uL (130-450); RED BLOOD COUNT 4.44 10^6/uL (4.20-5.40); RED CELL DISTRIBUTION WIDTH 13.3 % (12.0-15.0); WHITE BLOOD COUNT 10.4 x10^3/uL (4.8-10.8)
[2018-04-12 20:43] LABS: CLARITY,URINE CLEAR (CLEAR)
[2018-04-12 20:51] LABS: ALBUMIN 3.9 g/dL (3.2-5.5); ALBUMIN/GLOBULIN RATIO 1.2 (1.0-2.2); BILIRUBIN,TOTAL 0.7 mg/dL (0.2-1.0); CREATININE 0.6 mg/dL (0.4-1.0); TOTAL PROTEIN 7.2 g/dL (6.7-8.2)
[2018-04-12] MEDS ORDERED: IOPAMIDOL-300 100 ML VIAL ONE (20:57)
[2018-04-12 21:01] LABS: BACTERIA,URINE None Seen /HPF (None Seen); RBC,URINE 0-5 /HPF (0-5); SQUAMOUS EPITHELIAL CELL,UR FEW Squamous (<= Few)
[2018-04-12] MEDS ORDERED: IOPAMIDOL-300 100 ML VIAL IVP ONE (21:27)
--- NOTE | 2018-04-12 21:47 | CT Report ---
Reason: diffuse abd pain 9 days s/p lap appy Procedure Date: 04/12/2018 Accession Number: [id number] / [id number] Procedure: CT - Abdomen/Pelvis W/ CPT Code: FULL RESULT: EXAM: CT ABDOMEN AND PELVIS EXAM DATE: 04/12/2018 09:17 PM. CLINICAL HISTORY: Diffuse abd pain 9 days status post laparoscopic appendectomy. COMPARISONS: ABDOMEN/PELVIS W/ 04/03/2018 3:53 PM. TECHNIQUE: Routine helical CT imaging was performed through the abdomen and pelvis. IV contrast: 100 ML ISOVUE 300. Enteric contrast: No. Reconstructions: Coronal and sagittal. In accordance with CT protocol optimization, one or more of the following dose reduction techniques were utilized for this exam: automated exposure control, adjustment of mA and/or KV based on patient size, or use of iterative reconstructive technique. FINDINGS: Lung Bases: Unremarkable. Liver: Normal. No masses. Gallbladder/Bile Ducts: The gallbladder is surgically absent. Spleen: Normal. Pancreas: Normal. Adrenal Glands: Normal. Kidneys: Normal. No masses or hydronephrosis. Peritoneal Cavity/Bowel: Nonobstructive bowel gas pattern. Postoperative changes from appendectomy. No free air or free fluid. Pelvic Organs: The uterus and ovaries are not seen. The urinary bladder is at least moderately distended. Vasculature: No aneurysms or other significant abnormality. Bones: Redemonstrated partial sclerosis of the L5 vertebral body, mostly the inferior endplate, which is nonspecific. There is disk space narrowing at L5-S1, possible degenerative disk disease. Other: None. IMPRESSION: No evidence of acute pathology in the abdomen or pelvis. Nonobstructive bowel gas pattern. RADIA
[2018-04-12] MEDS ORDERED: MAG HYDROX/AL HYDROX/SIMETH 30 ML UDC PO STA (21:48)
[2018-04-12] MEDS ORDERED: LIDOCAINE VISCOUS 2% 15 ML UDC MM STA (21:48)
[2018-04-12] MEDS ORDERED: PHENobarb/HYOSCY/ATROPINE/SCOP 5 ML UDC PO STA (21:48)
[2018-04-12] MEDS ORDERED: SUCRALFATE 1 GM/10 ML UDC PO STA (21:48)
[2018-04-12] MEDS ORDERED: PANTOPRAZOLE 40 MG VIAL IVP STA (21:49)
[2018-04-12 22:03] VITALS: BP 118/74
== END 2018-04-12 22:35 | disposition home or self-care (01) ==
LOC: EDUNIT# → ED 19:36
DX: K29.00 Acute gastritis without bleeding (principal); R10.13 Epigastric pain
CPT/HCPCS: 36415; 74177; 80053; 81001; 83690; 85025; 87086; 96361; 96374; 96375; 96376; 99284; A9270; J1170; Q9967; 81003

== ENCOUNTER 2020-04-19 12:00 | Outpatient (CLI) | payer OTHER | END 2020-04-19 12:01 | disposition home or self-care (01) | LOC: LAB 12:00 | PROVIDERS: ATTEND Physician Assistant Medical | DX: Z20.828 Contact with and (suspected) exposure to other viral communicable diseases (principal) ==

== ENCOUNTER 2020-06-14 08:00 | Outpatient (CLI) | payer BC, OTHER ==
[2020-06-14 20:27] LABS: BASOPHILS % (AUTO) 0.5 %; EOSINOPHILS # (AUTO) 0.1 10^3/uL (0.0-0.7); EOSINOPHILS % (AUTO) 1.1 %; HCT - HEMATOCRIT 45.8 % (37.0-47.0); LYMPHOCYTES # (AUTO) 2.2 10^3/uL (1.5-3.5); LYMPHOCYTES % (AUTO) 29.8 %; MEAN CORPUSCULAR HGB CONC 32.8 g/dL (32.0-36.0); MEAN CORPUSCULAR VOLUME 94.6 fL (81.0-99.0); MEAN PLATELET VOLUME 11.9 fL (7.9-10.8); MONOCYTES # (AUTO) 0.5 10^3/uL (0.0-1.0); MONOCYTES % (AUTO) 7.1 %; NEUTROPHILS # (AUTO) 4.6 10^3/uL (1.5-6.6); NEUTROPHILS % (AUTO) 61.4 %; PLT - PLATELET COUNT 274 10^3/uL (130-450); RED BLOOD COUNT 4.84 10^6/uL (4.20-5.40); RED CELL DISTRIBUTION WIDTH 12.7 % (12.0-15.0); WHITE BLOOD COUNT 7.4 x10^3/uL (4.8-10.8)
[2020-06-14 20:40] LABS: ALBUMIN 4.3 g/dL (3.2-5.5); ALBUMIN/GLOBULIN RATIO 1.2 (1.0-2.2); BILIRUBIN,TOTAL 0.8 mg/dL (0.2-1.0); CALCIUM 10.1 mg/dL (8.5-10.3); CREATININE 0.7 mg/dL (0.4-1.0); POTASSIUM 4.2 mmol/L (3.5-5.0); TOTAL PROTEIN 7.8 g/dL (6.7-8.2)
[2020-06-14 20:56] LABS: THYROID STIMULATING HORMONE 1.09 uIU/mL (0.34-5.60)
== END 2020-06-14 23:59 | disposition home or self-care (01) ==
LOC: LAB.N 08:00
PROVIDERS: ATTEND Nurse Practitioner
DX: N95.1 Menopausal and female climacteric states (principal)
CPT/HCPCS: 36415; 80053; 84443; 85025

== ENCOUNTER 2020-07-07 09:26 | Outpatient (CLI) | payer BC ==
[2020-07-07 09:49] LABS: BASOPHILS # (AUTO) 0.1 10^3/uL (0.0-0.1); EOSINOPHILS # (AUTO) 0.1 10^3/uL (0.0-0.7); EOSINOPHILS % (AUTO) 1.7 %; HCT - HEMATOCRIT 43.3 % (37.0-47.0); HGB - HEMOGLOBIN 14.2 g/dL (12.0-16.0); LYMPHOCYTES # (AUTO) 2.8 10^3/uL (1.5-3.5); LYMPHOCYTES % (AUTO) 38.9 %; MEAN CORPUSCULAR HEMOGLOBIN 30.9 pg (27.0-31.0); MEAN CORPUSCULAR HGB CONC 32.8 g/dL (32.0-36.0); MEAN CORPUSCULAR VOLUME 94.3 fL (81.0-99.0); MEAN PLATELET VOLUME 11.3 fL (7.9-10.8); MONOCYTES # (AUTO) 0.5 10^3/uL (0.0-1.0); NEUTROPHILS # (AUTO) 3.7 10^3/uL (1.5-6.6); NEUTROPHILS % (AUTO) 51.3 %; PLT - PLATELET COUNT 246 10^3/uL (130-450); RED BLOOD COUNT 4.59 10^6/uL (4.20-5.40); RED CELL DISTRIBUTION WIDTH 12.8 % (12.0-15.0); WHITE BLOOD COUNT 7.1 x10^3/uL (4.8-10.8)
[2020-07-07 10:00] LABS: ALBUMIN 4.2 g/dL (3.2-5.5); ALBUMIN/GLOBULIN RATIO 1.2 (1.0-2.2); BILIRUBIN,TOTAL 0.7 mg/dL (0.2-1.0); CALCIUM 9.5 mg/dL (8.5-10.3); CREATININE 0.7 mg/dL (0.4-1.0); POTASSIUM 3.9 mmol/L (3.5-5.0); TOTAL PROTEIN 7.8 g/dL (6.7-8.2)
[2020-07-07 11:09] LABS: THYROID STIMULATING HORMONE 2.19 uIU/mL (0.34-5.60)
== END 2020-07-07 09:27 | disposition home or self-care (01) ==
LOC: LAB 09:26
PROVIDERS: ATTEND Nurse Practitioner
DX: R23.2 Flushing (principal)
CPT/HCPCS: 36415; 80053; 84443; 85025

== ENCOUNTER 2020-10-12 07:51 | Outpatient (CLI) | payer BC ==
[2020-10-12 08:24] LABS: BUN - BLOOD UREA NITROGEN 23 mg/dL (6-20); CALCIUM 9.1 mg/dL (8.5-10.3); CARBON DIOXIDE - CO2 26 mmol/L (21-32); CHLORIDE 105 mmol/L (101-111); CHOL/HDL RATIO 3.6 (<4.4); CHOLESTEROL 184 mg/dL; CREATININE 0.7 mg/dL (0.4-1.0); GFR - MDRD 86 (>89); GLUCOSE 111 mg/dL (70-100); HDL CHOLESTEROL 51 mg/dL; LDL CHOLESTEROL,CALCULATED 101 mg/dL; POTASSIUM 3.7 mmol/L (3.5-5.0); SODIUM 137 mmol/L (135-145); TRIGLYCERIDES 158 mg/dL; VLDL CHOLESTEROL 32 mg/dL
[2020-10-12 08:58] LABS: ESTIMATED AVERAGE GLUCOSE 114 mg/dL (70-100); HEMOGLOBIN A1c% 5.6 % (4.27-6.07)
== END 2020-10-12 07:52 | disposition home or self-care (01) ==
LOC: LAB 07:51
PROVIDERS: ATTEND Physician Assistant Medical
DX: R73.01 Impaired fasting glucose (principal)
CPT/HCPCS: 36415; 80048; 80061; 83036; 83721

== ENCOUNTER 2021-03-23 08:50 | Outpatient (CLI) | payer BC | END 2021-03-23 23:59 | disposition home or self-care (01) | LOC: LAB.N 08:50 | PROVIDERS: ATTEND Family Medicine | DX: R07.0 Pain in throat (principal); Z20.822 Contact with and (suspected) exposure to COVID-19 | CPT/HCPCS: 87070; 87077 ==

== ENCOUNTER 2021-04-19 14:44 | Outpatient (CLI) | payer BC ==
--- NOTE | 2021-04-19 15:56 | XRAY Report ---
PROCEDURE: Lumbar Spine Complete INDICATIONS: NECK PAIN,ACUTE,LOW BACK PAIN,CHRONIC TECHNIQUE: 4 views of the lumbar spine were acquired. COMPARISON: None. FINDINGS: Bones: 5 [id number] vertebrae are present. There is multilevel trace retrolisthesis. Severe di sc and moderate to severe foraminal narrowing are noted at L5-S1, scattered mild multilevel disc spac e narrowing is present throughout the remainder of the lumbar spine. There is minimal foraminal narro wing at L2-3, L3-4 and moderate at L4-5. No vertebral body compression fractures. No suspicious bony lesions. Soft tissues: Overlying bowel gas pattern is normal. No suspicious soft tissue calcifications. IMPRESSION: Multilevel degenerative changes most notable at L5-S1. If concern persists for nerve ronak t compression, MRI lumbar spine may be obtained as indicated. Reviewed by: Corinne Marr MD on 04/19/2021 3:55 PM PDT Approved by: Corinne Marr MD on 04/19/2021 3:55 PM PDT Station ID: [id number]
--- NOTE | 2021-04-19 16:19 | XRAY Report ---
PROCEDURE: Cervical Spine 2 View INDICATIONS: NECK PAIN,ACUTE,LOW BACK PAIN,CHRONIC TECHNIQUE: 3 views of the cervical spine were acquired. COMPARISON: None. FINDINGS: Bones: No acute fractures or dislocations to the C7 level. The lateral masses of C1 appear intact o n the odontoid view. No suspicious bony lesions. Mild disc space narrowing is seen throughout the l ower cervical spine. Mild multilevel facet hypertrophy is seen. Soft tissues: No prevertebral soft tissue swelling. IMPRESSION: No acute osseous abnormality. Mild spondylosis. Reviewed by: Darron Victoria MD on 04/19/2021 4:18 PM PDT Approved by: Darron Victoria MD on 04/19/2021 4:18 PM PDT Station ID: [id number]
== END 2021-04-19 14:45 | disposition home or self-care (01) ==
LOC: DI 14:44
PROVIDERS: ATTEND Family Medicine
DX: M54.2 Cervicalgia (principal); M54.50 Low back pain, unspecified; G89.29 Other chronic pain; M47.812 Spondylosis without myelopathy or radiculopathy, cervical region; M47.817 Spondylosis without myelopathy or radiculopathy, lumbosacral region

== ENCOUNTER 2021-10-19 13:43 | Outpatient (CLI) | payer BC ==
[2021-10-19] MEDS ORDERED: GADOBUTROL 10 MMOL/10 ML VIAL ONE (14:10)
--- NOTE | 2021-10-19 15:06 | MRI Report ---
PROCEDURE: Brain W/WO INDICATIONS: TINGLING SENSATION CONTRAST: IV CONTRAST: Gadavist ml: 7.7 TECHNIQUE: Noncontrast axial T1 spin echo, axial T2 fast spin echo, sagittal and axial FLAIR, coronal T2 fast sp in echo, axial gradient echo, axial diffusion and ADC through the brain. After the administration of contrast, axial and coronal T1 spin echo with fat saturation through the brain. COMPARISON: None. FINDINGS: Image quality: Excellent. CSF spaces: Basal cisterns are patent. No extra-axial fluid collections. Ventricles are normal in size and shape. Brain: No midline shift. No intracranial bleeds. There is a small, 4 mm in maximum diameter, densel y enhancing, dural-based, extra-axial mass involving the anterior right frontal convexity. Lesion has isointense signal on both T1 and T2-weighted images. No abnormal intracranial enhancement. There is cerebral volume loss for age. There is periventricular white matter chronic small vessel ischemic c hange. The brainstem appears normal. Diffusion-weighted images demonstrate no acute ischemic insult s. No chronic ischemic insults. Normal intravascular flow voids are present. Dural sinuses demonstr ate normal postcontrast enhancement. Skull and face: Calvarial marrow is normal in signal. Orbits appear normal. Sinuses: Sinuses and mastoids appear clear. IMPRESSION: 1. 4 mm enhancing right frontal convexity extra-axial mass. Lesions has imaging characteristics most compatible with meningioma, however early metastatic lesion cannot be differentiated without follow-u p imaging. Recommend repeat MRI of the brain with and without contrast in 3 months to confirm stabili ty of the finding. 2. Otherwise, normal MRI of the brain. Reviewed by: Lisette Hanks MD, PhD on 10/19/2021 3:05 PM PDT Approved by: Lisette Hanks MD, PhD on 10/19/2021 3:05 PM PDT Station ID: [id number]
[2021-10-19] MEDS ORDERED: GADOBUTROL 10 MMOL/10 ML VIAL IVP ONE (16:14)
== END 2021-10-19 13:44 | disposition home or self-care (01) ==
LOC: DI 13:43
PROVIDERS: ATTEND Family Medicine
DX: R20.2 Paresthesia of skin (principal); Z82.0 Family history of epilepsy and other diseases of the nervous system; R90.89 Other abnormal findings on diagnostic imaging of central nervous system
CPT/HCPCS: 70553; A9585

== ENCOUNTER 2021-10-25 13:59 | Outpatient (CLI) | payer BC | END 2021-10-25 14:00 | disposition critical access hospital (66) | LOC: EMS 13:59 | DX: R11.0 Nausea (principal); R42 Dizziness and giddiness | CPT/HCPCS: A0425; A0427 ==

== ENCOUNTER 2021-10-25 14:01 | Emergency (ER) | payer BC ==
--- NOTE | 2021-10-25 14:12 | ED Physician Documentation ---
PD HPI HEENT - Stated complaint Stated Complaint: DIZZY/NAUSEOUS - Chief complaint Chief Complaint: Neuro - History obtained from History obtained from: Patient - History of Present Illness Timing - onset: Today Timing - details: Abrupt onset, Still present (onset of vertigo when just standing and had some head movement. Did not have abrupt position change. severe vertigo with nausea. No focal weakness. Headache frontal. Some light sensitive.) Location: Other (has had tinnitus left ear for months). 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 Some mild vertigo at times. Tinnitus left ear. With headaches, can have numbness in hands at times. Not consistently light sensitive, but is at times.) Recently seen: Clinic (seen by PMD and Rx with gabapentin. MRI brain ordered and was done 5 days ago, showing 4 mm meningioma, but no acute other findings.) Review of Systems Constitutional: denies: Fever, Chills Eyes: denies: Loss of vision Ears: reports: Tinnitus/ringing. denies: Loss of hearing, Ear pain GI: reports: Nausea (at onset of the vertigo today), Vomiting Neurologic: reports: Numbness (in hands with headaches at times), Headache, Other (tremors at times). 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: Tubal ligation - Present Medications Home Medications: Ambulatory Orders Medication Instructions Recorded Confirmed Docusate Sodium 250Mg Capsule 250 mg PO DAILY #14 capsule 01/13/16 04/12/18 [Colace] [place]-3/Dha/Epa/Fish Oil [Fish Oil 1 each PO DAILY 12/11/17 04/12/18 1,000 mg Softgel] Amitriptyline HCl 10 mg PO TID 04/12/18 04/12/18 Famotidine [Pepcid] 20 mg PO BID #60 tablet 04/12/18 Pentosan Polysulfate Sodium 100 mg PO TID 04/12/18 04/12/18 [Elmiron] Sucralfate [Carafate] 1 gm PO ACHS #60 tablet 04/12/18 Meclizine HCl [Motion Sickness] 25 mg PO Q6H PRN #30 tablet 10/25/21 Nortriptyline [Pamelor] 25 mg PO HS #20 cap 10/25/21 Ondansetron Odt [Zofran] 4 mg TL Q6H PRN #15 tablet 10/25/21 dexAMETHasone [Decadron] 4 mg PO DAILY #5 tablet 10/25/21 - Allergies Allergies/Adverse Reactions: Allergies Allergy/AdvReac Type Severity Reaction Status Date / Time No Known Drug Allergies Allergy Verified 10/25/21 14:07 - Social History Does the pt smoke?: No Smoking Status: Never smoker Does the pt drink ETOH?: No Does the pt have substance abuse?: No - Immunizations Immunizations are current?: Yes - POLST Patient has POLST: No PD ED PE NORMAL - Vitals Vital signs reviewed: Yes - General General: Alert and oriented X 3, Well developed/nourished - HEENT HEENT: PERRL, EOMI (nystagmus horizontal to left with head movement. ) - Neck Neck: Supple, no meningeal sign, No adenopathy, No bruit - Cardiac Cardiac: RRR, No murmur - Respiratory Respiratory: Clear bilaterally - Derm Derm: Normal color, Warm and dry - Extremities Extremities: Normal ROM s pain - Neuro Neuro: Alert and oriented X 3, repairer auto clocks 2-12 intact, No motor deficit, No sensory deficit, Normal speech, Other Eye Opening: Spontaneous Motor: Obeys Commands Verbal: Oriented GCS Score: 15 Results - Vitals Vitals: Vital Signs - 24 hr 10/25/21 10/25/21 10/25/21 14:07 14:10 16:43 Temperature 37.1 C 37.1 C Heart Rate 93 93 72 Respiratory 18 15 18 Rate Blood Pressure 148/89 H 148/89 H 117/67 O2 Saturation 99 99 96 Oxygen O2 Source Room air - Labs Labs: Laboratory Tests 10/25/21 10/25/21 10/25/21 14:54 14:54 14:54 WBC 7.7 RBC 4.71 Hgb 14.7 Hct 43.6 MCV 92.6 MCH 31.2 H MCHC 33.7 RDW 12.3 Plt Count 242 MPV 11.2 H Neut # (Auto) 5.4 Lymph # (Auto) 1.7 Cross # (Auto) 0.5 Eos # (Auto) 0.1 Baso # (Auto) 0.1 Absolute Nucleated RBC 0.00 Nucleated RBC % 0.0 ESR 4 Sodium 139 Potassium 3.9 Chloride 102 Carbon Dioxide 27 Anion Gap 10.0 BUN 14 Creatinine 0.7 Estimated GFR (MDRD) 86 L Glucose 109 H Calcium 9.4 Magnesium 2.1 Total Bilirubin 0.5 AST 21 ALT 22 Alkaline Phosphatase 75 Total Protein 7.7 Albumin 4.2 Globulin 3.5 Albumin/Globulin Ratio 1.2 Lipase 28 Vitamin B12 TSH Cortisol 10/25/21 14:54 WBC RBC Hgb Hct MCV MCH MCHC RDW Plt Count MPV Neut # (Auto) Lymph # (Auto) Cross # (Auto) Eos # (Auto) Baso # (Auto) Absolute Nucleated RBC Nucleated RBC % ESR Sodium Potassium Chloride Carbon Dioxide Anion Gap BUN Creatinine Estimated GFR (MDRD) Glucose Calcium Magnesium Total Bilirubin AST ALT Alkaline Phosphatase Total Protein Albumin Globulin Albumin/Globulin Ratio Lipase Vitamin B12 497 TSH 1.09 Cortisol 21.6 PD MEDICAL DECISION MAKING - ED course Complexity details: reviewed old records (MRI Brain recently that was normal. SO can exclude MS, tumors, vascular abnormality (no intravascular flow voids). 4 mm exta-axial mass c/w meningioma noted. ), reviewed results (the 4 mm meningioma on recent brain MRI should not be causing any space occupying lesions and is not near posterior fossa. ), re-evaluated patient (she is much less dizzy after meds. headache is completely resolved, which would suggest more migrainous/functional headache given response to Inapsine and toradol. She has had daily headaches for couple of months. She would like Rx meds to try to help with that. ) ED course: For her daily headaches, seem functional category. Recent MRI does not have findings to suggest reason for headaches. sensitive to NSAIDs so will not try Indomethacin. Consider Nortyptylline low dose initially. Otherwise topiramate is commonly used for these. Departure - Departure Disposition: 01 Home, Self Care Clinical Impression: Acute severe vertigo, Daily headache Condition: Stable Record reviewed to determine appropriate education?: Yes Instructions: ED Vertigo Unspecified Follow-Up: Farida Wilburn DO [Primary Care Provider] - Prescriptions: dexAMETHasone [Decadron] 4 mg PO DAILY #5 tablet Meclizine HCl [Motion Sickness] 25 mg PO Q6H PRN #30 tablet PRN Reason: Vertigo Nortriptyline [Pamelor] 25 mg PO HS #20 cap Ondansetron Odt [Zofran] 4 mg TL Q6H PRN #15 tablet PRN Reason: Nausea / Vomiting Comments: Stay well-hydrated. Frequent fluids. Use Decadron daily for the next 5 days to help with potential inflammation in the inner ear causing the vertigo and can also help with headaches. Use meclizine every 6-8 hours if needed for vertigo/dizziness. Ondansetron if needed for nausea. Since you have been having a lot of other symptoms and also the daily headaches for a while now, we could try some of the chronic daily headache type approaches the neurologist to use. 1 such type is nortriptyline nightly at a low dose and see if that helps over the next week. Other considerations with your primary care could be higher in the dose if not improving or other medications for headache such as topiramate. Follow-up with your primary care next week as planned. I transmitted your prescriptions to [facility] pharmacy. Discharge Date/Time: 10/25/21 16:46
[2021-10-25] MEDS ORDERED: KETOROLAC 15 MG/ML VIAL IVP STA (14:44)
[2021-10-25] MEDS ORDERED: DROPERIDOL 5 MG/2 ML VIAL IVP STA (14:44)
[2021-10-25] MEDS ORDERED: SODIUM CHLORIDE 0.9% 1,000 ML IV STA (14:45)
[2021-10-25] MEDS ORDERED: DEXAMETHASONE 10 MG/ML VIAL IVP STA (14:46)
[2021-10-25 15:02] LABS: BASOPHILS # (AUTO) 0.1 10^3/uL (0.0-0.1); BASOPHILS % (AUTO) 0.8 %; EOSINOPHILS # (AUTO) 0.1 10^3/uL (0.0-0.7); EOSINOPHILS % (AUTO) 0.9 %; HCT - HEMATOCRIT 43.6 % (37.0-47.0); HGB - HEMOGLOBIN 14.7 g/dL (12.0-16.0); LYMPHOCYTES # (AUTO) 1.7 10^3/uL (1.5-3.5); LYMPHOCYTES % (AUTO) 21.6 %; MEAN CORPUSCULAR HEMOGLOBIN 31.2 pg (27.0-31.0); MEAN CORPUSCULAR HGB CONC 33.7 g/dL (32.0-36.0); MEAN CORPUSCULAR VOLUME 92.6 fL (81.0-99.0); MEAN PLATELET VOLUME 11.2 fL (7.9-10.8); MONOCYTES # (AUTO) 0.5 10^3/uL (0.0-1.0); MONOCYTES % (AUTO) 6.4 %; NEUTROPHILS # (AUTO) 5.4 10^3/uL (1.5-6.6); NEUTROPHILS % (AUTO) 69.9 %; PLT - PLATELET COUNT 242 10^3/uL (130-450); RED BLOOD COUNT 4.71 10^6/uL (4.20-5.40); RED CELL DISTRIBUTION WIDTH 12.3 % (12.0-15.0); WHITE BLOOD COUNT 7.7 x10^3/uL (4.8-10.8)
[2021-10-25 15:14] LABS: ALBUMIN 4.2 g/dL (3.2-5.5); ALBUMIN/GLOBULIN RATIO 1.2 (1.0-2.2); BILIRUBIN,TOTAL 0.5 mg/dL (0.2-1.0); CALCIUM 9.4 mg/dL (8.5-10.3); CREATININE 0.7 mg/dL (0.4-1.0); MAGNESIUM 2.1 mg/dL (1.7-2.8); POTASSIUM 3.9 mmol/L (3.5-5.0); TOTAL PROTEIN 7.7 g/dL (6.7-8.2)
[2021-10-25 15:28] LABS: CORTISOL 21.6 ug/dL
[2021-10-25 15:31] LABS: THYROID STIMULATING HORMONE 1.09 uIU/mL (0.34-5.60)
[2021-10-25 16:43] VITALS: BP 117/67
== END 2021-10-25 16:46 | disposition home or self-care (01) ==
LOC: EDUNIT# → EDBD → ED 14:01
DX: R42 Dizziness and giddiness (principal); R51.9 Headache, unspecified
CPT/HCPCS: 36415; 80053; 82533; 82607; 83690; 83735; 84443; 85025; 85651; 96374; 96375; 99283

== ENCOUNTER 2021-11-23 10:49 | Outpatient (CLI) | payer BC ==
--- NOTE | 2021-11-23 13:42 | Mammography Report ---
BILATERAL DIGITAL SCREENING MAMMOGRAM 3D/2D: 11/23/2021 CLINICAL: Baseline exam Routine screening. No prior exams were available for comparison. The tissue of right breasts is heterogeneously dense. This may lower the sensitivity of mammography. Patient was only able to complete one view, right CC. Other views were not acquired. Patient refused to complete exam. No significant mass or calcifications seen on the right CC or right CC tomosynthesis views. IMPRESSION: NEGATIVE Incomplete mammographic exam. No mass seen on right CC view. If the patient is willing to try, recommend completion of the mammographic evaluation. Recommend clinical follow-up. This exam was interpreted at Station ID: [id number]. Electronically Signed By: Robert Kendall M.D. slc/:11/23/2021 12:36:15 ACR BI-RADS Category 1: Negative 3341F PARENCHYMAL PATTERN: (D) - The breast(s) demonstrate(s) heterogeneously dense fibroglandular parenchy ma. BI-RADS CATEGORY: (1) - 1 RECOMMENDATION: (ADDMAM) - Recommend additional mammographic views. [id number] Immediate follow-up LATERALITY: (B)
== END 2021-11-23 10:50 | disposition home or self-care (01) ==
LOC: DI.N 10:49
DX: Z12.31 Encounter for screening mammogram for malignant neoplasm of breast (principal); Z53.20 Procedure and treatment not carried out because of patient's decision for unspecified reasons

== ENCOUNTER 2022-07-11 08:00 | Outpatient (CLI) | payer BC ==
[2022-07-11 17:35] LABS: BASOPHILS % (AUTO) 0.9 %; EOSINOPHILS % (AUTO) 0.2 %; HCT - HEMATOCRIT 45.1 % (37.0-47.0); HGB - HEMOGLOBIN 14.4 g/dL (12.0-16.0); LYMPHOCYTES # (AUTO) 1.5 10^3/uL (1.5-3.5); LYMPHOCYTES % (AUTO) 35.7 %; MEAN CORPUSCULAR HEMOGLOBIN 29.4 pg (27.0-31.0); MEAN CORPUSCULAR HGB CONC 31.9 g/dL (32.0-36.0); MEAN PLATELET VOLUME 12.2 fL (7.9-10.8); MONOCYTES # (AUTO) 0.6 10^3/uL (0.0-1.0); MONOCYTES % (AUTO) 13.8 %; NEUTROPHILS # (AUTO) 2.1 10^3/uL (1.5-6.6); NEUTROPHILS % (AUTO) 48.7 %; PLT - PLATELET COUNT 231 10^3/uL (130-450); RED CELL DISTRIBUTION WIDTH 13.2 % (12.0-15.0); WHITE BLOOD COUNT 4.3 x10^3/uL (4.8-10.8)
[2022-07-11 17:48] LABS: BILIRUBIN,URINE NEGATIVE (NEGATIVE); GLUCOSE, URINE (UA) NEGATIVE (NEGATIVE); KETONES,URINE (UA) NEGATIVE (NEGATIVE); LEUKOCYTE ESTERASE, URINE NEGATIVE (NEGATIVE); NITRITE,URINE NEGATIVE (NEGATIVE); OCCULT BLOOD,URINE NEGATIVE (NEGATIVE); PH,URINE 7.5 PH (5.0-7.5); PROTEIN,URINE NEGATIVE (NEGATIVE); UROBILINOGEN,URINE 0.2 (NORMAL) E.U./dL (NORMAL)
[2022-07-11 18:13] LABS: BACTERIA,URINE Few /HPF (None Seen); CLARITY,URINE HAZY (CLEAR); RBC,URINE None Seen /HPF (0-5); SQUAMOUS EPITHELIAL CELL,UR MANY Squamous (<= Few); WBC,URINE 0-3 /HPF (0-5)
[2022-07-11 18:20] LABS: ALBUMIN 4.2 g/dL (3.2-5.5); ALBUMIN/GLOBULIN RATIO 1.2 (1.0-2.2); BILIRUBIN,TOTAL 0.4 mg/dL (0.2-1.0); CALCIUM 9.1 mg/dL (8.5-10.3); CREATININE 0.7 mg/dL (0.4-1.0); POTASSIUM 4.1 mmol/L (3.5-5.0); TOTAL PROTEIN 7.6 g/dL (6.7-8.2)
== END 2022-07-11 23:59 | disposition home or self-care (01) ==
LOC: LAB.N 08:00
PROVIDERS: ATTEND Nurse Practitioner
DX: R10.9 Unspecified abdominal pain (principal)
CPT/HCPCS: 36415; 80053; 81001; 82150; 83690; 85025; 87086

== ENCOUNTER 2022-10-10 13:59 | Outpatient (CLI) | payer BC | END 2022-10-10 14:00 | disposition home or self-care (01) | LOC: MAC.INF 13:59 | PROVIDERS: ATTEND Physician Assistant | DX: R00.2 Palpitations (principal) | CPT/HCPCS: 93246 ==

== ENCOUNTER 2022-10-27 10:30 | Outpatient (CLI) | payer BC | END 2022-10-27 10:31 | disposition home or self-care (01) | LOC: MAC.INF 10:30 | PROVIDERS: ATTEND Physician Assistant | DX: R00.0 Tachycardia, unspecified (principal); I49.3 Ventricular premature depolarization | CPT/HCPCS: 93244 ==

== ENCOUNTER 2023-07-31 09:15 | Outpatient (CLI) | payer BC ==
[2023-07-31 12:26] LABS: BASOPHILS # (AUTO) 0.1 10^3/uL (0.0-0.1); BASOPHILS % (AUTO) 0.7 %; EOSINOPHILS # (AUTO) 0.1 10^3/uL (0.0-0.7); EOSINOPHILS % (AUTO) 1.3 %; HCT - HEMATOCRIT 44.8 % (37.0-47.0); HGB - HEMOGLOBIN 14.2 g/dL (12.0-16.0); LYMPHOCYTES # (AUTO) 2.5 10^3/uL (1.5-3.5); LYMPHOCYTES % (AUTO) 32.9 %; MEAN CORPUSCULAR HEMOGLOBIN 29.6 pg (27.0-31.0); MEAN CORPUSCULAR HGB CONC 31.7 g/dL (32.0-36.0); MEAN CORPUSCULAR VOLUME 93.3 fL (81.0-99.0); MONOCYTES # (AUTO) 0.6 10^3/uL (0.0-1.0); MONOCYTES % (AUTO) 7.5 %; NEUTROPHILS # (AUTO) 4.3 10^3/uL (1.5-6.6); NEUTROPHILS % (AUTO) 57.3 %; PLT - PLATELET COUNT 248 10^3/uL (130-450); RED CELL DISTRIBUTION WIDTH 13.3 % (12.0-15.0); WHITE BLOOD COUNT 7.4 x10^3/uL (4.8-10.8)
[2023-07-31 13:01] LABS: CALCIUM 9.8 mg/dL (8.5-10.3); CREATININE 0.9 mg/dL (0.6-1.3); POTASSIUM 3.8 mmol/L (3.5-4.5)
[2023-07-31 13:33] LABS: TROPONIN I HIGH SENSITIVITY 2.3 ng/L (2.3-14.8)
== END 2023-07-31 09:30 | disposition home or self-care (01) ==
LOC: LAB.N 09:15
PROVIDERS: ATTEND Physician Assistant
DX: R00.2 Palpitations (principal)
CPT/HCPCS: 36415; 80048; 81599; 84484; 85025; 85379

== ENCOUNTER 2023-07-31 14:10 | Emergency (ER) | payer BC ==
[2023-07-31] MEDS ORDERED: iohexoL-300 100 ML VIAL ONE (15:41)
[2023-07-31] MEDS ORDERED: ALBUTEROL NEB 2.5 MG/3 ML INH STA (15:44)
--- NOTE | 2023-07-31 15:46 | ED Physician Documentation ---
History of Present Illness - Stated complaint Stated Complaint: SENT BY WALK IN D DIMER - Chief complaint Chief Complaint: Resp - History obtained from History obtained from: Patient - History of Present Illness Timing: How many days ago (5) - Additonal information Additional information: Patient is a 62-year-old female who presents to the emergency department with increasing dyspnea with exertion for the past 5 days. She has had a rhinorrhea, cough and congestion as well. She states that she had COVID back in June. She was seen at the walk-in clinic earlier today had negative laboratory testing including a high-sensitivity troponin. Reportedly normal EKG. Her D-dimer came back elevated so she was sent here for CT pulmonary angiogram to rule out PE. Patient does not have any risk factors for PE. No calf swelling, no immobilization, no travel, no history of blood clots. Not on hormone replacement therapy. Does not smoke. No history of lung issues. She states that she does not feel short of breath at rest. She states that gradually if she exerts herself she becomes more short of breath than usual. Review of Systems Constitutional: denies: Fever, Chills Nose: reports: Rhinorrhea / runny nose, Congestion Respiratory: reports: Cough (Dry, "hacky") GI: denies: Abdominal Pain, Vomiting, Diarrhea Skin: denies: Rash Musculoskeletal: denies: Neck pain, Back pain Neurologic: denies: Headache PD PAST MEDICAL HISTORY - Past Medical History Past Medical History: Yes Cardiovascular: None Respiratory: None Neuro: Headaches, Tremors, Other Endocrine/Autoimmune: None GI: Hemorrhoids, Diverticulitis Psych: Anxiety Other Past Medical History: meningioma - Past Surgical History Past Surgical History: Yes General: Cholecystectomy, Appendectomy, 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: Tubal ligation - Present Medications Home Medications: Ambulatory Orders Medication Instructions Recorded Confirmed Docusate Sodium 250Mg Capsule 250 mg PO DAILY #14 capsule 01/13/16 04/12/18 [Colace] [place]-3/Dha/Epa/Fish Oil [Fish Oil 1 each PO DAILY 12/11/17 04/12/18 1,000 mg Softgel] Sucralfate [Carafate] 1 gm PO ACHS #60 tablet 04/12/18 Meclizine HCl [Motion Sickness] 25 mg PO Q6H PRN #30 tablet 10/25/21 Estradiol [Minivelle] 1 each TD 10/10/22 10/10/22 Sertraline [Zoloft] 50 mg PO DAILY 10/10/22 10/10/22 Albuterol Sulf [Ventolin Hfa 1 - 2 puffs INH Q4HR PRN #1 each 07/31/23 Inhaler] - Allergies Allergies/Adverse Reactions: Allergies Allergy/AdvReac Type Severity Reaction Status Date / Time ibuprofen AdvReac Emesis Verified 07/31/23 14:34 - Social History Does the pt smoke?: No Smoking Status: Never smoker Does the pt drink ETOH?: No Does the pt have substance abuse?: No - Immunizations Immunizations are current?: Yes - POLST Patient has POLST: No PD ED PE NORMAL - Vitals Vital signs reviewed: Yes - General General: Alert and oriented X 3, No acute distress - HEENT HEENT: PERRL, Moist mucous membranes - Neck Neck: Supple, no meningeal sign - Cardiac Cardiac: RRR, Strong equal pulses - Respiratory Respiratory: No respiratory distress, Clear bilaterally - Abdomen Abdomen: Soft, Non tender, Non distended - Derm Derm: Warm and dry - Extremities Extremities: No edema, No calf tenderness / cord - Neuro Neuro: Alert and oriented X 3 - Psych Psych: Normal mood, Normal affect Results - Vitals Vitals: Vital Signs - 24 hr 07/31/23 07/31/23 07/31/23 14:29 14:34 16:43 Temperature 36.4 C L 36.5 C 36.1 C L Heart Rate 78 78 75 Respiratory 20 20 16 Rate Blood Pressure 124/72 124/72 127/58 L O2 Saturation 100 100 99 07/31/23 17:13 Temperature Heart Rate 69 Respiratory 15 Rate Blood Pressure O2 Saturation Oxygen O2 Source Room air - Rads (name of study) CT pulmonary angiogram Relevant Findings:: Final report received, See rad report PD Medical Decision Making - ED course Complexity details: reviewed results, re-evaluated patient, considered differential, d/w patient ED course: No acute findings on CT pulmonary angiogram. No evidence of PE. Patient does feel better after albuterol treatment, we will trial her on albuterol inhaler for home. Her laboratory testing from earlier today at the walk-in clinic does not show any acute abnormalities, had a reportedly normal EKG. Negative high- sensitivity troponin. No evidence of pulmonary edema. No evidence of pneumonia. No hypoxia. No respiratory distress. Will have her follow-up with her PCP for further care. Patient counseled regarding signs and symptoms for which I believe and urgent re-evaluation would be necessary. Patient with good understanding of and agreement to plan and is comfortable going home at this time This document was made in part using voice recognition software. While efforts are made to proofread this document, sound alike and grammatical errors may occur. Departure - Departure Disposition: Home, Self Care Clinical Impression: Dyspnea Qualifiers: Dyspnea type: unspecified Qualified Code(s): R06.00 - Dyspnea, unspecified Condition: Good Instructions: ED Dyspnea Shortness of Breath Follow-Up: your,doctor in 1 week [Other] Prescriptions: Albuterol Sulf [Ventolin Hfa Inhaler] 1 - 2 puffs INH Q4HR PRN #1 each PRN Reason: Shortness Of Air/Wheezing Comments: Your prescription was sent to [facility] in [place]. Please follow-up with your doctor for further care. Your CT pulmonary angiogram is negative today and does not show any evidence of pulmonary embolus or other inflammatory process. Forms: PCP List Discharge Date/Time: 07/31/23 17:18
[2023-07-31] MEDS ORDERED: iohexoL-300 100 ML VIAL IVP ONE (16:41)
[2023-07-31 16:48] VITALS: BP 127/58; O2SAT 99
--- NOTE | 2023-07-31 16:58 | CT Report ---
PROCEDURE: Angio Chest INDICATIONS: elevated d-dimer, SOA CONTRAST: 80mL Omni 300 TECHNIQUE: After the administration of intravenous contrast, 2 mm axial images were acquired from the pulmonary apices to the posterior costophrenic angles during the arterial phase. In addition, 1 mm lung kernel and 5 mm soft tissue kernel reconstructions were performed. 3-dimensional coronal oblique maximum int ensity projection (MIP) reformats, 8 mm axial MIP, and 5 mm coronal and sagittal MPR reformats were t hen performed through the thorax. For radiation dose reduction, the following was used: automated exp osure control, adjustment of mA and/or kV according to patient size. COMPARISON: None. FINDINGS: Image quality: Excellent. Large vessels: No filling defects within the opacified pulmonary arteries, accounting for motion and contrast timing. No evidence of acute aortic syndrome or aortic aneurysm. Lungs and pleura: No consolidation. No pleural effusions. No pneumothorax. No suspicious pulmonary n odules which require follow up. Mediastinum: Heart size is normal. No pericardial effusion. No large vessel abnormality. No mediastin al adenopathy by size criteria. Chest wall and lower neck: Thyroid is unremarkable. No axillary or supraclavicular adenopathy by size . Bones: No aggressive osseous abnormality. Upper Abdomen: Gallbladder is surgically absent. No gross abnormality is seen in visualized liver, sp oscar, and pancreas. IMPRESSION: No pulmonary embolus. Bilateral lungs are clear. No mediastinal or hilar lymphadenopathy. Reviewed by: Gabo Orlando MD on 07/31/2023 4:56 PM PST Approved by: Gabo Orlando MD on 07/31/2023 4:56 PM PST Station ID: [id number]
== END 2023-07-31 17:18 | disposition home or self-care (01) ==
LOC: ED 14:10
DX: R06.00 Dyspnea, unspecified (principal); R00.2 Palpitations
CPT/HCPCS: 36415; 71275; 80048; 82553; 84484; 85025; 85379; 94640; 99283; 99284; Q9967; 81599

== ENCOUNTER 2023-09-01 09:03 | Outpatient (CLI) | payer BC ==
[2023-09-01 09:28] LABS: HCT - HEMATOCRIT 44.8 % (37.0-47.0); HGB - HEMOGLOBIN 14.3 g/dL (12.0-16.0); MEAN CORPUSCULAR HEMOGLOBIN 29.7 pg (27.0-31.0); MEAN CORPUSCULAR HGB CONC 31.9 g/dL (32.0-36.0); MEAN CORPUSCULAR VOLUME 93.1 fL (81.0-99.0); MEAN PLATELET VOLUME 11.6 fL (7.9-10.8); RED BLOOD COUNT 4.81 10^6/uL (4.20-5.40); RED CELL DISTRIBUTION WIDTH 13.2 % (12.0-15.0); WHITE BLOOD COUNT 6.5 x10^3/uL (4.8-10.8)
[2023-09-01 09:57] LABS: THYROID STIMULATING HORMONE 1.14 uIU/mL (0.34-5.60)
[2023-09-01 10:03] LABS: ALBUMIN 4.2 g/dL (3.2-5.5); ALBUMIN/GLOBULIN RATIO 1.4 (1.0-2.2); ALKALINE PHOSPHATASE 87 IU/L (42-121); ALT ALANINE AMINOTRANSFERASE 23 IU/L (10-60); AST ASPARTATE AMINOTRANSFERASE 19 IU/L (10-42); BILIRUBIN,TOTAL 0.4 mg/dL (0.2-1.0); BUN - BLOOD UREA NITROGEN 17 mg/dL (6-20); CALCIUM 9.7 mg/dL (8.5-10.3); CARBON DIOXIDE - CO2 24 mmol/L (21-32); CHLORIDE 104 mmol/L (101-111); CHOL/HDL RATIO 3.5 (<4.4); CHOLESTEROL 205 mg/dL; CREATININE 0.7 mg/dL (0.6-1.3); GFR - MDRD 85 (>89); GLUCOSE 132 mg/dL (74-104); HDL CHOLESTEROL 58 mg/dL; LDL CHOLESTEROL,CALCULATED 97 mg/dL; LDL/HDL RATIO 1.7 (<4.4); POTASSIUM 4.1 mmol/L (3.5-4.5); SODIUM 137 mmol/L (135-145); TOTAL PROTEIN 7.3 g/dL (6.4-8.9); TRIGLYCERIDES 249 mg/dL (48-352); VLDL CHOLESTEROL 50 mg/dL
[2023-09-04 02:08] LABS: VITAMIN D 25-HYDROXY 28.4 ng/mL (30.0-100.0)
== END 2023-09-01 09:04 | disposition home or self-care (01) ==
LOC: LAB 09:03
PROVIDERS: ATTEND Obstetrics & Gynecology
DX: U09.9 Post COVID-19 condition, unspecified (principal); Z13.220 Encounter for screening for lipoid disorders
CPT/HCPCS: 36415; 80053; 80061; 82306; 82607; 82677; 83721; 84402; 84403; 84443; 85027

== ENCOUNTER 2023-09-13 13:32 | Outpatient (CLI) | payer BC ==
[2023-09-13 14:21] LABS: ESTIMATED AVERAGE GLUCOSE 117 mg/dL (70-100); HEMOGLOBIN A1c% 5.7 % (4.27-6.07)
== END 2023-09-13 13:33 | disposition home or self-care (01) ==
LOC: LAB 13:32
PROVIDERS: ATTEND Physician Assistant
DX: R73.01 Impaired fasting glucose (principal)
CPT/HCPCS: 36415; 83036